=== PATIENT | female | born 1965 | race Caucasian/White ===

== ENCOUNTER 2019-02-13 08:58 | Outpatient (CLI) | payer BC ==
--- NOTE | 2019-02-13 11:30 | PET ---
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 Special concern for skull. COMPARISON: None available TECHNIQUE: IV injection of F-18 fluorodeoxyglucose (FDG) dose: 11.4 mCi. PET scan and attenuation correction CT performed from skull base to proximal thighs. PET scan and attenuation correction CT thinner slices performed through head and neck. FINDINGS: SUV (standard uptake values) numbers given are maximum SUVs. QCLR used. 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 No hypermetabolic lesions anywhere in the in the head and neck, including cervical spine, skull base, and mandible. In the superior, far anterior mediastinum broadly abutting the sternum and centered to the left of mi dline, there is a soft tissue density mass that measures approximately 3 x 1.5 x 2.5 cm, with SUV 3.2. The adjacent sternal manubrium which it abuts, is almost completely involved with a diffusely os teolytic lesion, for which the SUV is only 2.6. Nevertheless, based on the circumstances, this osteolytic lesion is still consistent with plasmacytoma/myeloma. There are no other hypermetabolic soft tissue lesions in the rest of the chest, abdomen, or pelvis. There are diffusely mildly increased FDG uptake involving much of the skeleton, without evidence of d iscrete lesion on the attenuation correction CT. For example, bilateral iliac bones have SUVs in the 2.1-2.6 range. S1 sacral body has SUV of 2.6. All of the lumbar vertebral bodies and most of the thoracic vertebral bodies have SUVs ranging from approximately 2.4 to slightly greater than 3.0. For example, the T8 vertebral body has SUV of 3.4. Although some of the SUVs fall below the 2.5 threshold in the pelvis and lumbar spine, the patient re portedly had a random bone marrow biopsy at [facility] of the left iliac bone which showed positive results of multiple myeloma. Therefore, it is concluded that all of these skele larissa regions of mildly increased FDG uptake throughout the thoracic spine, lumbar spine, and pelvis, represent involvement by multiple myeloma. IMPRESSION: 1) evidence for multiple myeloma. 2) the originally diagnosed lesion in the sternum is definitely a large osteolytic lesion visible on the attenuation correction CT. It has slightly increased uptake with SUV of 2.6. 3) a 3 cm retrosternal soft tissue density mass with SUV 3.2 is evidence for myeloma/plasmacytoma. 4) evidence for multiple myeloma diffuse involvement of the thoracic spine, lumbar spine, and pelvis, with mostly low grade FDG uptake.
== END 2019-02-13 08:59 | disposition home or self-care (01) ==
LOC: PET 08:58
PROVIDERS: ATTEND Internal Medicine Hematology & Oncology
DX: C90.00 Multiple myeloma not having achieved remission (principal); R22.2 Localized swelling, mass and lump, trunk; M89.9 Disorder of bone, unspecified
CPT/HCPCS: 78815; A9552

== ENCOUNTER 2019-03-06 13:48 | Outpatient (CLI) | payer BC ==
--- NOTE | 2019-03-06 14:45 | RAD ---
ABDOMEN 2 VIEWS: HISTORY: Severe constipation. FINDINGS: No free intraperitoneal air. There is solid fecal material in the colon including minimally dilated rectum, evidence for constipation. No evidence for overt large or small bowel obstruction. No overt calculus. IMPRESSION: Considerable fecal material throughout the colon, evidence for constipation. POS: C
== END 2019-03-06 13:49 | disposition home or self-care (01) ==
LOC: BICRAD 13:48
PROVIDERS: ATTEND Internal Medicine
DX: K59.00 Constipation, unspecified (principal)
CPT/HCPCS: 74019

== ENCOUNTER 2019-05-10 10:17 | Observation (INO) | payer OTHER ==
[2019-05-10 11:01] LABS: #Eosinphils 0.2 thou/uL (0.0-0.7); #Lymphocytes 0.5 thou/uL (1.20-3.40); #Monocytes 0.2 thou/uL (0.11-0.59); #Neutrophils 4.3 thou/uL (1.40-6.50); %Basophils 0.4 % (0.0-1.0); %Lymphocytes 8.7 % (21.0-51.0); %Monocytes 2.8 % (0.0-10.0); %Neutrophils 84.1 % (42.0-75.0); Hemoglobin 12.9 g/dL (12.0-16.0); Mean Corpuscular HGB CONC 33.1 g/dL (32.0-36.0); Mean Corpuscular Hemoglobin 32.6 pg (27.0-31.0); Mean Corpuscular Volume 98.4 fL (78.0-98.0); Platelet Count 205 thou/uL (130-400); RBC Distribution Width 13.2 % (11.5-14.5); Red Blood Cell (RBC) Count 3.95 mill/uL (4.20-5.40); White Blood Cell (WBC) Count 5.2 thou/uL (4.8-10.8)
--- NOTE | 2019-05-10 11:05 | CT ---
EXAM: CT Stone Protocol PROVIDED CLINICAL HISTORY: Left flank pain COMPARISON: None FINDINGS: Visualized lung bases are free of significant opacity. The solid abdominal organs are suboptimally evaluated in the absence an unremarkable unenhanced CT ap pearance. Small caudate lobe liver cyst. Extrarenal pelvis on the right. No evidence for urinary tract calculi. No bowel dilatation, inflammatory fat stranding, free fluid or free air apparent. There is moderate c olonic fecal retention. There is no evidence for appendicitis. Foci of gas are seen within the cutaneous adipose layer of the anterior abdominal wall presumably ref lecting sites of medication administration. The osseous structures demonstrate no concerning lytic or blastic lesions. IMPRESSION: No evidence for urinary tract calculi or hydronephrosis.
[2019-05-10] MEDS ORDERED: Morphine 2 MG/ML SYRINGE ONE ×2 (11:08→11:44)
--- NOTE | 2019-05-10 11:32 | ULT ---
EXAM: Bilateral lower extremity venous Doppler PROVIDED CLINICAL HISTORY: Edema FINDINGS: Grayscale and color Doppler sonography with spectral analysis was performed of the common femoral, fe moral, popliteal, posterior tibial, greater saphenous and profunda femoral veins bilaterally. The evaluated venous structures demonstrate a normal sonographic appearance. IMPRESSION: No sonographic evidence for lower extremity deep venous thrombosis.
[2019-05-10 11:33] LABS: Calcium 8.8 mg/dL (7.8-10.44); Chloride 104 mmol/L (98-107); Potassium 3.4 mmol/L (3.5-5.1); Sodium 137 mmol/L (136-145)
[2019-05-10 11:43] LABS: Albumin 4.3 g/dL (3.5-5.0)
[2019-05-10 11:45] LABS: Globulin 1.9 g/dL (2.4-3.5); Glucose 108 mg/dL (70-105); Protein, Total 6.2 g/dL (6.0-8.3)
[2019-05-10 11:47] LABS: Anion Gap 9 mmol/L (10-20); Bilirubin, Total 0.2 mg/dL (0.2-1.2); Carbon Dioxide 27 mmol/L (22-29)
[2019-05-10 11:48] LABS: Alkaline Phosphatase 71 U/L (40-150); Calc. Creatinine Clearance 0 mL/min (70-130); Estimated GFR-MDRD 71
[2019-05-10 11:49] LABS: BUN (Urea Nitrogen) 8 mg/dL (9.8-20.1)
[2019-05-10 11:50] LABS: AST (SGOT) 14 U/L (5-34)
[2019-05-10 11:51] LABS: ALT (SGPT) 13 U/L (8-55)
[2019-05-10] MEDS ORDERED: Potassium Chloride 20 MEQ TAB ONE (12:38)
[2019-05-10] MEDS ORDERED: Ketorolac Tromethamine 30 MG/ML VIAL ONE (12:38)
[2019-05-10 13:35] LABS: Magnesium 2.1 mg/dL (1.6-2.6)
[2019-05-10 13:55] LABS: Bilirubin Negative (Negative); Blood, Urine Negative (Negative); Clarity Clear (Clear); Glucose, Urine (Dipstick) Normal (Negative); Leukocyte Negative Leu/uL (Negative); Nitrite Negative (Negative); Protein, Urine (Dipstick) Negative (Neg-Trace); Urobilinogen Normal mg/dL (Less than 2)
[2019-05-10] MEDS ORDERED: Morphine 2 MG/ML SYRINGE SLOW IVP PRN (15:31)
[2019-05-10 15:43] LABS: Lactic Acid 0.6 mmol/L (0.5-2.2)
[2019-05-10] MEDS ORDERED: Ketorolac Tromethamine 30 MG/ML VIAL IVP PRN (16:38)
[2019-05-10] MEDS ORDERED: Ondansetron ODT 4 MG TAB PO PRN (16:45)
[2019-05-10] MEDS ORDERED: Acetaminophen 325 MG TAB PO PRN (16:45)
[2019-05-10] MEDS ORDERED: Ondansetron PF 4 MG/2 ML Vial IVP PRN (16:45)
[2019-05-10] MEDS: Sodium Chloride 0.9% 1,000 ML IV SCH (16:47)
[2019-05-10 17:07] VITALS: BMI 25.7
--- NOTE | 2019-05-10 19:02 | HP ---
PRIMARY CARE PHYSICIAN: Jorge Cooper MD CHIEF COMPLAINT: Left flank pain. HISTORY OF PRESENT ILLNESS: Ms. Candelario is a 53-year-old female with a past medical history of multiple myeloma, currently undergoing chemotherapy. She had recently finished her fourth round of chemo and is scheduled to undergo stem cell transplant next month in [facility]. She had reported to the ED earlier today with worsening left flank pain and left lower back pain, she was recently treated for a UTI with Bactrim about 3 days ago, urine culture returned normal. She had denied any fever or chills; any headache, blurred vision, or dizziness; any chest pain, palpitations, shortness of breath, abdominal pain, nausea, or vomiting. She had denied any radiation of her pain, and states that it is there all day, no matter what she does, she is not able to get comfortable. She underwent further testing in the ED including a bilateral lower extremity Doppler, which was negative for DVT at this time, and she underwent a CT stone protocol, which was normal. She states that she is under the care of Dr. 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 Her blood pressure and other vital signs remained stable, and her pain was improved after a dose of morphine and Toradol. REVIEW OF SYSTEMS: All other systems reviewed and found to be negative unless mentioned in the HPI. PAST MEDICAL HISTORY: Multiple myeloma. PAST SURGICAL HISTORY: C-spine fusion of C5 and C6, appendectomy, hysterectomy. PAST PSYCHIATRIC HISTORY: None. SOCIAL HISTORY: The patient reports drinking socially roughly once a month, and denied any illicit drug use. She is a former tobacco user and quit more than 10 years ago. KNOWN ALLERGIES: No known drug allergies. CURRENT HOME MEDICATIONS: 1. Biotin 1000 mcg oral daily. 2. Bortezomib 1.3 mg/m2 subcu. 3. Vitamin D3 1000 units p.o. daily. 4. Denosumab 120 mg subcu q.30 days. 5. Dexamethasone 20 mg p.o. q.7 days. 6. TONEY 100 mg p.o. daily. 7. Multivitamin 1 capsule p.o. daily. 8. [place]-3 fatty acid and fish oil one capsule oral daily. 9. Omeprazole 20 mg oral daily. 10. Zofran 8 mg p.o. b.i.d. 11. Bactrim 400 mg p.o. b.i.d. 12. Aspirin 81 mg daily. 13. Hydrocodone/acetaminophen 5/325 mg oral as needed for pain. 14. Lenalidomide 25 mg p.o. daily. 15. Valacyclovir 500 mg p.o. at bedtime. 16. Venlafaxine 150 mg p.o. daily. PHYSICAL EXAMINATION: VITAL SIGNS: BP 140/76, pulse 99, respirations 18, temp 98.1, O2 saturation 97% on room air. GENERAL: The patient is awake, alert, and oriented x3. She is currently lying comfortably in bed. She appears to be in mild acute distress due to her flank pain and her is at bedside. HEENT: Atraumatic and normocephalic. Pupils are round and reactive to light. Extraocular muscles intact. Moist mucous membranes noted. NECK: Soft, supple. Trachea midline. CARDIOVASCULAR: Positive S1 and S2. Regular rate and rhythm. No murmur auscultated. RESPIRATORY: Clear to auscultation bilaterally. No wheezes, rales, or rhonchi. ABDOMEN: Soft, nontender. Bowel sounds present. She appears to have some mild bruises, however, nontender. EXTREMITIES: Moves all extremities equal. Strength 5+ bilaterally. Pedal and radial pulses 2+ bilaterally. No edema noted. BACK: Flank tenderness noted in the lumbar region. NEUROLOGIC: Cranial nerves 2 through 12 grossly intact. No focal deficits noted. Speech intact and normal. Gait not assessed. SKIN: Warm, dry, and intact. PSYCHIATRIC: Good mood and affect. LABORATORY DATA: WBC 5.2, RBC 3.95, hemoglobin 12.9, hematocrit 38.9, platelets 205. Sodium 137, potassium 3.4, anion gap 9, BUN 8, creatinine 0.84, estimated GFR 71, glucose 108. Lactic acid 0.6, calcium 8.8, magnesium 2.1. Creatine kinase 42. Vitamin D 30.7. Urinalysis unremarkable. DIAGNOSTIC IMAGING: Bilateral lower extremity Doppler was negative for DVT. CT stone protocol was unremarkable. ASSESSMENT AND PLAN: 1. Flank pain. This appears to be likely a musculoskeletal in nature. Therefore, we will give her symptomatic treatment with IV Toradol, IV morphine, and topical lidocaine. We will also keep her on her home regimen for pain control. However, we will check an MRI for further evaluation. 2. History of multiple myeloma. We will consult with Dr. Ashley for further recommendations. 3. Deep venous thrombosis and gastrointestinal prophylaxis. 4. Code status, full code. DISPOSITION: Pending further workup and clinical findings. Job ID: [id number]
[2019-05-10] MEDS: Famotidine 20 MG TAB PO SCH (20:50)
[2019-05-10] MEDS ORDERED: Lenalidomide [Revlimid] 25 MG PO SCH (21:00)
[2019-05-10] MEDS ORDERED: Aspirin Chewable 81 MG TAB PO SCH (21:00)
[2019-05-10] MEDS ORDERED: valACYclovir 500 MG TAB PO SCH (21:00)
[2019-05-10] MEDS: BACTRIM PO SCH (21:05)
[2019-05-10] MEDS: HYDROcodone/Acetaminophen 5/325 mg Tablet PO PRN (21:56)
[2019-05-11] MEDS: Sodium Chloride 0.9% 1,000 ML IV SCH (02:02)
[2019-05-11] MEDS: HYDROcodone/Acetaminophen 5/325 mg Tablet PO PRN ×3 (03:04→13:00)
[2019-05-11 03:11] LABS: #Lymphocytes 0.4 thou/uL (1.20-3.40); #Monocytes 0.5 thou/uL (0.11-0.59); #Neutrophils 3.9 thou/uL (1.40-6.50); %Basophils 0.2 % (0.0-1.0); %Eosinophils 0.6 % (0.0-10.0); %Neutrophils 81.1 % (42.0-75.0); Hemoglobin 11.2 g/dL (12.0-16.0); Mean Corpuscular HGB CONC 33.5 g/dL (32.0-36.0); Mean Corpuscular Hemoglobin 33.3 pg (27.0-31.0); Mean Corpuscular Volume 99.3 fL (78.0-98.0); Mean Platelet Volume 8.2 fL (7.4-10.4); Platelet Count 158 thou/uL (130-400); RBC Distribution Width 13.1 % (11.5-14.5); Red Blood Cell (RBC) Count 3.37 mill/uL (4.20-5.40); White Blood Cell (WBC) Count 4.8 thou/uL (4.8-10.8)
[2019-05-11 03:35] LABS: Anion Gap 12 mmol/L (10-20); BUN (Urea Nitrogen) 8 mg/dL (9.8-20.1); Calc. Creatinine Clearance 100 mL/min (70-130); Calcium 7.6 mg/dL (7.8-10.44); Carbon Dioxide 22 mmol/L (22-29); Chloride 109 mmol/L (98-107); Estimated GFR-MDRD 90; Glucose 115 mg/dL (70-105); Potassium 4.2 mmol/L (3.5-5.1); Sodium 139 mmol/L (136-145)
[2019-05-11] MEDS: BACTRIM PO SCH (08:33)
[2019-05-11] MEDS: Famotidine 20 MG TAB PO SCH (08:33)
[2019-05-11] MEDS ORDERED: Lenalidomide [Revlimid] 25 MG PO SCH (09:00)
[2019-05-11] MEDS ORDERED: Lidocaine 5% Patch TD SCH (09:00)
[2019-05-11] MEDS ORDERED: Enoxaparin Sodium 40 MG/0.4 ML SYRINGE SC SCH (09:00)
[2019-05-11] MEDS ORDERED: Venlafaxine HCl XR 150 MG CAP PO SCH (09:00)
[2019-05-11] MEDS ORDERED: Milk Of Magnesia 30 ML UDCUP PO PRN (10:10)
--- NOTE | 2019-05-11 11:25 | MRI ---
EXAM: MRI Lumbar Spine WO Con PROVIDED CLINICAL HISTORY: Back pain COMPARISON: None FINDINGS: 5 lumbar vertebral bodies are assumed. Lumbar alignment appears normal. Vertebral body heights appear preserved. No focal concerning regional marrow or muscular signal abnormality is evident. The conus medullaris is normal in signal and terminates at an appropriate level. The visualized extraspin al soft tissues appear unremarkable. The L1-2 and L2-3 levels are unremarkable. At L3-4, there is disc desiccation and mild disc space height loss within annular tear involving the dorsal disc margin. There is mild bilateral facet arthritis. There is no significant central canal or foraminal narrowing apparent. At L4-5, there is disc desiccation and a broad-based disc bulge and bilateral facet arthritis. There is no significant central canal or foraminal narrowing apparent. At L5-S1, there is a annular tear involving the dorsal disc margin. There is bilateral facet arthriti s. There is no significant central canal or foraminal narrowing apparent. IMPRESSION: Lumbar disc and facet degenerative changes as described.
[2019-05-11 12:43] VITALS: BP 123/65; TEMP 98.2
--- NOTE | 2019-05-11 13:16 | CON ---
DATE OF CONSULTATION: REASON FOR CONSULT: Multiple myeloma. HISTORY OF PRESENT ILLNESS: Ms. Candelario is a pleasant 53-year-old female, who is newly diagnosed with multiple myeloma. She had a manubrium mass consistent with a plasmacytoma. She underwent 4 cycles of Revlimid, Velcade, dexamethasone, and Xgeva. She also had radiation to her plasmacytoma. She is scheduled for a stem cell transplant in May. She has been having a rash and erythema from her Velcade injection and she has struggled with constipation throughout this entire process. She has been recently diagnosed with urinary tract infection. She presented to the emergency room yesterday with left upper quadrant abdominal pain and flank pain. She underwent a venous Doppler of her lower extremities, which was negative for DVT. She also underwent an abdominal CT. There was no bowel dilation, inflammatory fat stranding, or free air apparent. There was some stool retention. She has been given narcotic pain medication with some improvement in her pain. Her antibiotics for UTI have been continued. PAST MEDICAL HISTORY: 1. IgM kappa myeloma. 2. Depression. PAST SURGICAL HISTORY: 1. Appendectomy. 2. Hysterectomy. 3. C-spine fusion. ALLERGIES: TO BEXTRA. HOME MEDICATIONS: 1. Aspirin. 2. Biotin. 3. Velcade. 4. Vitamin D. 5. Xgeva. 6. Dexamethasone. 7. [place]. 8. Revlimid. 9. MVI. 10. Fish oil. 11. Prilosec. 12. Zofran. 13. Bactrim. 14. Valtrex. 15. Effexor. FAMILY HISTORY: Lung and kidney cancer. SOCIAL HISTORY: , has 3 children. She is a former smoker. No alcohol or illicit drug use. REVIEW OF SYSTEMS: Positive for constipation, left upper quadrant abdominal pain and left flank pain. Otherwise, negative. PHYSICAL EXAMINATION: VITAL SIGNS: Temperature 97.5, pulse is 82, respiratory rate 12, blood pressure is 120/67, and she is 98% on room air. GENERAL: Well-developed, well-nourished female, in no acute distress. HEENT: Normocephalic, atraumatic. Pupils are equal and reactive to light. NECK: Supple. CARDIOVASCULAR: Regular rate and rhythm. LUNGS: Clear. ABDOMEN: Soft. Bowel sounds are positive. She has mild tenderness to palpation in the left upper quadrant. EXTREMITIES: No clubbing or cyanosis. SKIN: She has erythema from her Velcade injections on her abdomen, both the right and left lower quadrant. NEUROLOGICAL: Nonfocal. PERTINENT LABS AND X-RAYS: Current WBCs are 4.8, hemoglobin 11.2, hematocrit 33.5, platelet count is 158,000, 81% neutrophils, 8% lymphocytes. Sodium 139, potassium 4.2, chloride 109, CO2 is 22, BUN is 8, creatinine is 0.69, and calcium 7.6. Lactic acid 0.6. Magnesium 2.1, bilirubin 0.2, AST is 14, ALT is 13, alkaline phosphatase is 71. Creatine kinase is 42. Serum total protein 6.2, albumin 4.3, and globulin 1.9. Urine is negative. ASSESSMENT: 1. Multiple myeloma, status post chemotherapy. 2. Urinary tract infection. 3. Left upper quadrant abdominal pain. DISCUSSION: The patient has been continued on her antibiotics for her UTI. She has been started on IV fluids and given Bristol pain medication. She states that she does struggle with constipation and there is retained fecal matter in her GI tract. We will give her Colace and Milk of Magnesia to see if she can have a bowel movement with improvement in her pain. No inpatient recommendations for her multiple myeloma. I will check her stool for occult blood per her request, as it is needed for a stem cell transplant that is taking place in about 2 weeks. Home, when her pain is better. Thank you for the consult. Job ID: [id number]
--- NOTE | 2019-05-11 14:45 | PRG ---
DATE OF SERVICE: 05/11/2019 SUBJECTIVE: The patient is seen and examined at bedside. She still complains about the back pain which is located in the mid part of the back just spine to the left. It is not worse with palpation. The pain which she has in the abdomen area, it is more related to the change of position. No nausea. No vomiting. She has chronically constipated from her medications for multiple myeloma. OBJECTIVE: VITAL SIGNS: Blood pressure is 123/65, pulse is 84, temperature is 98.2, respirations 16, O2 saturation 97% on room air. HEENT: Head is atraumatic and normocephalic. Eyes are PERRLA. Sclerae are nonicteric. Oral mucosa is moist. NECK: Supple. LUNGS: Clear. HEART: S1 and S2 normal. The pain in the lower parts of the thoracic spine to the left is the area which she complained about discomfort, but it is not reproducible with applied pressure. ABDOMEN: Soft, nontender. There is no organomegaly. Bowel sounds are present. EXTREMITIES: No clubbing, cyanosis, or edema. NEUROLOGICAL: She is alert and oriented x4. There is no any motor or sensory deficits. LABORATORY DATA: Labs showed a white count of 4.8, hemoglobin 11.2, hematocrit 33.5, and platelet count is 158,000. Sodium of 139, potassium 4.2, chloride 109, CO2 of 22, BUN 8, creatinine 0.69, calcium 7.6, vitamin D came back at 30.7. IMPRESSION: 1. Back pain which is not clear etiology, probably just musculoskeletal. Negative MRI without contrast and negative CT of the abdomen, stone protocol. We will use p.r.n. anti-inflammatory opioids and topical lidocaine. 2. Multiple myeloma. She is supposed to have stem cell transplant in 2 weeks. 3. Constipation. 4. Urinary tract infection. 5. We will stop IV fluids. We will continue p.r.n. anti-inflammatory or anti-pain medicine. We will get PT and she should be able to go home in the next 24 hours. Job ID: [id number]
--- NOTE | 2019-05-11 18:39 | DIS ---
DATE OF ADMISSION: 05/10/2019 DATE OF DISCHARGE: 05/11/2019 DIAGNOSES: At the time of discharge; 1. Back pain, most likely musculoskeletal etiology. 2. Multiple myeloma. 3. Microcytic anemia. 4. Hypocalcemia. 5. Hypokalemia corrected. CONSULTANTS: Dr. Maxwell, Oncology/Hematology Team. HOSPITAL COURSE: The patient is a 53-year-old female with past medical history of multiple myeloma, currently undergoing chemotherapy, who finished her four round of chemo and is scheduled for stem cell transplant next month at [facility], who reported to the ED earlier yesterday with worsening left flank pain and left lower back pain. Recently, she was diagnosed with UTI and placed on Bactrim. She denied any fever, chills, headache, blurred vision, dizziness, chest pain, palpitations, shortness of breath, abdominal pain, nausea, or vomiting. She underwent bilateral lower extremity Doppler in the emergency room, which was negative for DVT. Also, she underwent CT stone protocol, which was normal. At the time of emergency room visit, her white count was 5.2, hemoglobin 12.9, hematocrit 38.9, and platelet count 205,000. Sodium 137, potassium 3.4, BUN was 8, creatinine 0.82, lactic acid 0.6, glucose 108, magnesium 2.1, creatinine 42, and vitamin D was 30.7. Urinalysis was unremarkable. She got admitted to the hospital with IV fluids, IV Toradol, IV morphine, and topical lidocaine. MRI of the lumbar spine was done and it showed degenerative changes of lumbar disk and facets. She was seen by Oncology team, Audrey Juárez, who recommended just pain management with [place] and constipation management with Colace and milk of magnesia. The patient wants to go home. She is discharged home in good condition. She still has back pain on and off. Temperature is 98.2, respirations 16, pulse 84, blood pressure 123/65, and pulse oximetry is 97% on room air. She is seen and examined before she is discharged. DISPOSITION: She is discharged home. ACTIVITIES: As tolerated. DIET: Regular. MEDICATIONS: At the time of discharge; 1. Aspirin 81 mg once a day. 2. [place] 5/325 mg [id number]. 3. Docusate 100 mg twice a day. 4. Valacyclovir 500 mg at bedtime. 5. Effexor 150 mg daily. 6. Biotin 1000 mcg daily. 7. Velcade 3.5 mg while subcu 1.3 mg/m2 on the 3rd, 5th, 9th, 11th, and 21-day cycle. 8. Vitamin D3 of 1000 units once a day. 9. Xgeva 120 mg subcutaneously every 30 days. 10. Dexamethasone 20 mg q.7 days. 11. Docosahexaenoic acid or DHA 100 mg daily. 12. Ibuprofen 400 mg q.4 hours p.r.n. as needed. 13. Revlimid 25 mg once a day. 14. Multivitamin one a day. 15. [place]-3 fatty acids one a day. 16. Omeprazole 20 mg daily. 17. Ondansetron, which is Zofran 8 mg b.i.d. 18. Bactrim 400/80 mg twice a day for additional 2 days. 19. Tramadol 50 mg q.4 hours p.r.n. as needed. FOLLOWUP: She is going to follow up with her primary care physician in 1 week and with [facility], Dr. Ashley and MD Albarran as scheduled before. Job ID: [id number]
[2019-05-11] MEDS ORDERED: Lidocaine Patch Removal 1 EACH TOP SCH (21:00)
[2019-05-11] MEDS ORDERED: Docusate 100 MG CAP PO SCH (21:00)
== END 2019-05-11 16:20 | disposition home or self-care (01) ==
LOC: ERS 10:17 → ONC 12:35
PROVIDERS: ADMIT Internal Medicine; ATTEND Internal Medicine
DX: M54.5 Low back pain (principal); R10.12 Left upper quadrant pain; C90.30 Solitary plasmacytoma not having achieved remission; D50.9 Iron deficiency anemia, unspecified; E83.51 Hypocalcemia; E87.6 Hypokalemia; N39.0 Urinary tract infection, site not specified; F32.9 Major depressive disorder, single episode, unspecified; K59.00 Constipation, unspecified; M51.36 Other intervertebral disc degeneration, lumbar region; M46.86 Other specified inflammatory spondylopathies, lumbar region; Z87.891 Personal history of nicotine dependence; Z79.82 Long term (current) use of aspirin; Z79.899 Other long term (current) drug therapy; Z88.6 Allergy status to analgesic agent; Z98.1 Arthrodesis status
CPT/HCPCS: 36415; 72148; 74176; 80048; 80053; 81003; 82306; 82550; 83605; 83735; 85025; 87040; 87086; 93970; 96361; 96374; 96375; 96376; G0378; J1650; J1885; J2270; J2405

== ENCOUNTER 2019-08-15 07:26 | Outpatient (CLI) | payer OTHER ==
--- NOTE | 2019-08-15 08:18 | ULT ---
ULTRASOUND GALLBLADDER RIGHT UPPER QUADRANT: CLINICAL HISTORY: Nausea. Vomiting. Abdominal pain.. COMPARISON: None. Correlation: Stone CT 05/10/2019. FINDINGS: Pancreas: The head and proximal pancreatic body have a normal echotexture. The remainder the pancreas is obscured by bowel gas. Liver: Normal parenchymal echotexture. No hepatic solid masses or intrahepatic biliary dilatation. Th e contour of the hepatic margin is maintained. Right hepatic lobe measures 14.1 cm. Anechoic focus of the caudate lobe measures 1.2 x 1.3 x 1.2 cm suggesting a caudate lobe cyst. Gallbladder: Nonmobile, nonshadowing echogenic foci in the lumen of the gallbladder measuring 0.4 cm. Small gallbladder wall polyp is suspected. No evidence of gallbladder wall thickening or pericholecystic fluid. Cody's sign: Not commented upon. Portal Vein: Patent. Appropriate directional flow. Bile ducts: Common bile duct diameter 0.37 cm. Right kidney: No hydronephrosis 0.5 x 0.3 x 0.5 cm echogenic focus in the right renal cortex, which m ay represent a cortical calcification. Note, correlation made with recent CT does not demonstrate CT correlate.. Right kidney measures 3.8 x 10.3 x 5.1 cm in length. IMPRESSION: 1. Gallbladder wall polyp. 2. Possible small nephrolithiasis involving the right kidney. 3. Cyst in the caudate lobe of the liver. Transcribed Date/Time: 08/15/2019 8:28 AM
== END 2019-08-15 07:27 | disposition home or self-care (01) ==
LOC: ULT 07:26
PROVIDERS: ATTEND Internal Medicine Hematology & Oncology
DX: R10.9 Unspecified abdominal pain (principal); R11.2 Nausea with vomiting, unspecified; C90.20 Extramedullary plasmacytoma not having achieved remission; C90.00 Multiple myeloma not having achieved remission; C79.51 Secondary malignant neoplasm of bone; D47.2 Monoclonal gammopathy; K82.4 Cholesterolosis of gallbladder; K76.89 Other specified diseases of liver
CPT/HCPCS: 76705

== ENCOUNTER 2019-08-19 18:14 | Emergency (ER) | payer OTHER ==
[~2019-08-19 18:14] MED LIST: Iopamidol-370 76% 500 ML 1 ML ONE
--- NOTE | 2019-08-19 19:11 | RAD ---
EXAM: Portable chest PROVIDED CLINICAL HISTORY: Fever COMPARISON: None FINDINGS: Cardiac and mediastinal silhouette is within normal limits. No focal consolidation, pleural fluid or pneumothorax evident. IMPRESSION: No evidence for an acute cardiopulmonary process.
[2019-08-19 19:12] LABS: #Eosinphils 0.2 thou/uL (0.0-0.7); #Lymphocytes 0.6 thou/uL (1.20-3.40); #Monocytes 0.4 thou/uL (0.11-0.59); #Neutrophils 2.7 thou/uL (1.40-6.50); %Basophils 0.5 % (0.0-1.0); %Eosinophils 4.6 % (0.0-10.0); %Lymphocytes 15.3 % (21.0-51.0); %Monocytes 10.3 % (0.0-10.0); %Neutrophils 69.3 % (42.0-75.0); Hemoglobin 14.1 g/dL (12.0-16.0); Mean Corpuscular HGB CONC 35.5 g/dL (32.0-36.0); Mean Corpuscular Hemoglobin 31.7 pg (27.0-31.0); Mean Corpuscular Volume 89.3 fL (78.0-98.0); Mean Platelet Volume 8.2 fL (7.4-10.4); Platelet Count 110 thou/uL (130-400); RBC Distribution Width 16.3 % (11.5-14.5); Red Blood Cell (RBC) Count 4.45 mill/uL (4.20-5.40); White Blood Cell (WBC) Count 3.9 thou/uL (4.8-10.8)
[2019-08-19 19:24] LABS: ALT (SGPT) 104 U/L (8-55); AST (SGOT) 115 U/L (5-34); Alkaline Phosphatase 80 U/L (40-110); Anion Gap 10 mmol/L (10-20); BUN (Urea Nitrogen) 4 mg/dL (9.8-20.1); Bilirubin, Total 0.5 mg/dL (0.2-1.2); Calc. Creatinine Clearance 0 mL/min (70-130); Calcium 7.7 mg/dL (7.8-10.44); Carbon Dioxide 26 mmol/L (22-29); Chloride 104 mmol/L (98-107); Estimated GFR-MDRD Greater than 90; Globulin 2.1 g/dL (2.4-3.5); Glucose 98 mg/dL (70-105); Potassium 3.3 mmol/L (3.5-5.1); Protein, Total 6.1 g/dL (6.0-8.3); Sodium 137 mmol/L (136-145)
[2019-08-19 19:31] LABS: Large Platelets SLIGHT; MDiff Complete? YES; Platelet Morphology Comment Appears Decreased; RBC Morphology Normal
--- NOTE | 2019-08-19 20:07 | CT ---
EXAM: CT pulmonary angiogram with IV contrast and 3-D MIP reconstructions PROVIDED CLINICAL HISTORY: Cough COMPARISON: None FINDINGS: There is no evidence for central or segmental pulmonary embolus. The lungs are free of significant opacity. No pleural fluid or pneumothorax apparent. No evidence for thoracic lymph node enlargement. The airway appears patent and of normal caliber. The visualized portions of the upper abdomen demonstrate no acute findings. Lytic lesion within the sternum compatible with patient's provided clinical history of multiple myelo ma. IMPRESSION: No evidence for central or segmental pulmonary embolus.
== END 2019-08-19 21:02 | disposition home or self-care (01) ==
LOC: ERS 18:14
DX: J06.9 Acute upper respiratory infection, unspecified (principal); Z87.891 Personal history of nicotine dependence; Z79.899 Other long term (current) drug therapy
CPT/HCPCS: 36415; 71045; 71275; 80053; 83605; 85025; 85379; 87040; 87804; 96360; 96361; Q9967

== ENCOUNTER 2019-10-24 11:39 | Day surgery (SDC) | payer OTHER ==
[2019-10-23 11:06] VITALS: BMI 24.4
[2019-10-24] MEDS ORDERED: Propofol 500 MG/50 ML VIAL ONE ×2 (13:44→14:24)
[2019-10-24] MEDS ORDERED: Bupivacaine 0.25% HCL 30 ML VIAL ONE (14:11)
[2019-10-24] MEDS ORDERED: Lidocaine 1% w/Epinephrine 1:100K 20 ML VIAL ONE (14:11)
[2019-10-24] MEDS ORDERED: Midazolam HCl 2 mg/2 ml Vial ONE (14:24)
[2019-10-24] MEDS ORDERED: Fentanyl 100 MCG/2 ML VIAL ONE (14:24)
--- NOTE | 2019-10-24 16:00 | RAD ---
CHEST 1 VIEW: HISTORY: MediPort placement. FINDINGS: Heart size within normal limits. A right-sided MediPort catheter has been placed. Catheter tip over lies the superior vena cava. No pneumothorax. IMPRESSION: Post MediPort catheter placement. No pneumothorax. POS: [facility]
--- NOTE | 2019-10-24 21:58 | OP ---
DATE OF PROCEDURE: 10/24/2019 PREOPERATIVE DIAGNOSIS: Multiple myeloma. POSTOPERATIVE DIAGNOSIS: Multiple myeloma. PROCEDURE PERFORMED: Tunneled central line subcutaneous port (MediPort). ANESTHESIA: General. ESTIMATED BLOOD LOSS: Minimal. COMPLICATIONS: None. SPECIMEN: None. FINDINGS: Tip of the catheter was at the atriocaval junction. DESCRIPTION OF PROCEDURE: The patient was taken to the operating room and laid supine on the operating room table. After general anesthetic was obtained, the bilateral neck and chest were shaved, prepped, and draped in a sterile fashion. Local anesthetic was infiltrated over the right internal jugular vein. Internal jugular vein cannula using a 22-gauge finder needle followed by a Seldinger wire was passed into the superior vena cava under fluoro guidance. The dilator was used and a small shilpa was made at the wire entrance site. A separate 3 cm incision was made in the right upper chest. Subcutaneous pocket was made below the lower incision. Tubing for the MediPort tunneled from the inferior to superior incision and suture sheath was placed over the wire into the superior vena cava under fluoro guidance. The dilator and wire were removed. The end of the catheter sewed into the sheath. The sheath was peeled away. The tip of the catheter was at the atriocaval junction. MediPort tubing cut to fit the MediPort at the lower incision and the MediPort sewn to the chest wall in the subcutaneous pocket using Prolene. The MediPort was flushed and marion blood without difficulty, it was flushed with a heparin flush. All wounds were irrigated and closed using 3-0 Vicryl, 4-0 Monocryl, and Dermabond. The patient was sent to Recovery in stable condition. All instrument counts, needle counts, and lap counts were correct. Job ID: [id number]
== END 2019-10-24 16:50 | disposition home or self-care (01) ==
LOC: SDC 11:39
PROVIDERS: ATTEND Surgery
PROC: 02HV33Z Insertion of Infusion Device into Superior Vena Cava, Percutaneous Approach (ICD-10-PCS; principal; 2019-10-24)
DX: C90.00 Multiple myeloma not having achieved remission (principal); F32.9 Major depressive disorder, single episode, unspecified; Z79.899 Other long term (current) drug therapy; Z88.6 Allergy status to analgesic agent; Z88.8 Allergy status to other drugs, medicaments and biological substances
CPT/HCPCS: 71045; C1788; J0690; J1642; J2250; J2704; J3010; S0020

== ENCOUNTER 2020-03-16 16:04 | Outpatient (CLI) | payer OTHER ==
--- NOTE | 2020-03-16 16:28 | MMO ---
Bilateral MAMMO Bilat Screen [facility]. CLINICAL HISTORY: Patient is 54 years old and is seen for screening. The patient has the following family history of breast cancer: maternal aunt, malignant (generic) and paternal aunt, malignant (generic). The patient has a history of other cancer in 2019. VIEWS: The views performed were: bilateral craniocaudal with tomosynthesis and bilateral mediolateral oblique with tomosynthesis. FILMS COMPARED: The present examination has been compared to prior imaging studies performed at [facility] on 07/21/2015, 07/07/2016, 10/15/2017 and 11/11/2018. This study has been interpreted with the assistance of computer-aided detection. MAMMOGRAM FINDINGS: The breasts are almost entirely fat. There are no suspicious masses, suspicious calcifications, or new areas of architectural distortion. IMPRESSION: THERE IS NO MAMMOGRAPHIC EVIDENCE OF MALIGNANCY. A ROUTINE FOLLOW-UP MAMMOGRAM IN 1 YEAR IS RECOMMENDED. THE RESULTS OF THIS EXAM WERE SENT TO THE PATIENT. ACR BI-RADS Category 1 - Negative MAMMOGRAPHY NOTE: 1. A negative mammogram report should not delay a biopsy if a dominant of clinically suspicious mass is present. 2. Approximately 10% to 15% of breast cancers are not detected by mammography. 3. Adenosis and dense breasts may obscure an underlying neoplasm. Reported by: LILIAN BYNUM MD Electonically Signed: [id number]
== END 2020-03-16 16:05 | disposition home or self-care (01) ==
LOC: BICMAMMO 16:04
PROVIDERS: ATTEND Obstetrics & Gynecology
DX: Z12.31 Encounter for screening mammogram for malignant neoplasm of breast (principal); Z80.3 Family history of malignant neoplasm of breast; Z85.89 Personal history of malignant neoplasm of other organs and systems
CPT/HCPCS: 77063; 77067

== ENCOUNTER 2020-03-21 11:40 | Emergency (ER) | payer OTHER ==
[2020-03-21] MEDS ORDERED: Iopamidol-370 76% 500 ML 1 ML ONE (12:06)
[2020-03-21 13:31] LABS: Band 17 % (5-11); Eosinophils 13 % (0-10); Hemoglobin 13.1 g/dL (12.0-16.0); Lymphocytes 15 % (21-51); MDiff Complete? YES; Mean Corpuscular HGB CONC 34.6 g/dL (32.0-36.0); Mean Corpuscular Hemoglobin 36.5 pg (27.0-31.0); Mean Platelet Volume 9.9 fL (7.4-10.4); Monocytes 9 % (0-10); Neutrophil 37 % (42-75); Platelet Count 58 thou/uL (130-400); Platelet Morphology Comment Appears Decreased; RBC Distribution Width 12.2 % (11.5-14.5); Reactive Lymphocytes 9 % (0-10); Red Blood Cell (RBC) Count 3.59 mill/uL (4.20-5.40); White Blood Cell (WBC) Count 5.2 thou/uL (4.8-10.8)
[2020-03-21 13:36] LABS: ALT (SGPT) 77 U/L (8-55); AST (SGOT) 54 U/L (5-34); Alkaline Phosphatase 120 U/L (40-110); Anion Gap 16 mmol/L (10-20); BUN (Urea Nitrogen) 8 mg/dL (9.8-20.1); Bilirubin, Total 0.4 mg/dL (0.2-1.2); Calc. Creatinine Clearance 0 mL/min (70-130); Calcium 8.3 mg/dL (7.8-10.44); Carbon Dioxide 21 mmol/L (22-29); Chloride 105 mmol/L (98-107); Estimated GFR-MDRD Greater than 90; Globulin 2.1 g/dL (2.4-3.5); Glucose 76 mg/dL (70-105); Potassium 4.4 mmol/L (3.5-5.1); Protein, Total 6.1 g/dL (6.0-8.3); Sodium 138 mmol/L (136-145)
[2020-03-21 13:54] LABS: Bilirubin Negative (Negative); Blood, Urine Negative (Negative); Clarity Clear (Clear); Glucose, Urine (Dipstick) Normal (Negative); Ketone, Urine Negative (Negative); Leukocyte Negative Leu/uL (Negative); Nitrite Negative (Negative); Protein, Urine (Dipstick) Negative (Neg-Trace); Specific Gravity, Urine 1.005 (1.002-1.036); Urobilinogen Normal mg/dL (Less than 2); pH, Urine 6.5 (5.0-9.0)
--- NOTE | 2020-03-21 14:56 | CT ---
CTA Angio Chest W WO Con History: Dry cough and shortness of breath Comparison: CT angiogram of the chest July 2019 Findings: CT angiogram chest performed after the intravenous ministration of contrast. 3-D rendering provided. No proximal segmental pulmonary arterial filling defect. No pericardial effusion. No mediastinal betzaida opathy. Limited evaluation of the upper abdomen is unremarkable. Lytic focus of the manubrium is similar. Healing sagittally oriented right manubrial fracture. Patient is of the history of myeloma. Lungs are clear. No pneumothorax. No effusion. No displaced rib fracture. Impression: 1. No pulmonary embolism. 2. No evidence for pneumonia. 3. Healing pathologic fracture of the right manubrium through patient's known focus of myeloma.
[2020-03-22 11:55] LABS: SARS-CoV-2 MS2 Positive; SARS-CoV-2 N Gene Negative; SARS-CoV-2 S Gene Negative; SARS-CoV-2 by NAA Not Detected (NotDetected); SARS-CoV-2 orf1ab Negative
== END 2020-03-21 16:20 | disposition home or self-care (01) ==
LOC: ERS 11:40
DX: R09.1 Pleurisy (principal); R06.02 Shortness of breath; R05 Cough; F32.9 Major depressive disorder, single episode, unspecified; Z87.891 Personal history of nicotine dependence; Z79.899 Other long term (current) drug therapy
CPT/HCPCS: 71275; 80053; 81003; 84484; 85025; 85379; 86140; 87635; 93005; Q9967; U0003

== ENCOUNTER 2020-04-14 10:47 | Emergency (ER) | payer OTHER ==
[2020-04-14] MEDS ORDERED: Ondansetron ODT 4 MG TAB ONE (10:59)
--- NOTE | 2020-04-14 11:35 | CT ---
Exam: Head CT without contrast HISTORY: Headache with sinus drainage. Patient is undergoing chemotherapy for multiple myeloma. COMPARISON: none FINDINGS: Hemorrhage: No intraparenchymal hemorrhage or extra-axial hematoma. Brain parenchyma: Cortical toussaint-white matter differentiation is preserved. No mass effect or midline shift. Basilar cisterns are patent. Ventricular system: Ventricles and sulci are patent and symmetric. Calvarium: Intact. Sinuses and mastoid air cells: Adequate aeration. IMPRESSION: No acute intracranial process.
[2020-04-14 11:49] LABS: Hemoglobin 11.3 g/dL (12.0-16.0); Mean Corpuscular HGB CONC 32.8 g/dL (32.0-36.0); Mean Corpuscular Hemoglobin 34.7 pg (27.0-31.0); Mean Platelet Volume 7.2 fL (7.4-10.4); Platelet Count 254 thou/uL (130-400); RBC Distribution Width 12.3 % (11.5-14.5); Red Blood Cell (RBC) Count 3.25 mill/uL (4.20-5.40); White Blood Cell (WBC) Count 3.8 thou/uL (4.8-10.8)
[2020-04-14 12:12] LABS: ALT (SGPT) 150 U/L (8-55); AST (SGOT) 141 U/L (5-34); Albumin 3.8 g/dL (3.5-5.0); Alkaline Phosphatase 213 U/L (40-110); Anion Gap 10 mmol/L (10-20); BUN (Urea Nitrogen) 10 mg/dL (9.8-20.1); Bilirubin, Total 0.4 mg/dL (0.2-1.2); Calc. Creatinine Clearance 0 mL/min (70-130); Calcium 8.3 mg/dL (7.8-10.44); Carbon Dioxide 28 mmol/L (22-29); Chloride 104 mmol/L (98-107); Estimated GFR-MDRD 86; Glucose 87 mg/dL (70-105); Potassium 4.2 mmol/L (3.5-5.1); Protein, Total 5.8 g/dL (6.0-8.3); Sodium 138 mmol/L (136-145)
[2020-04-14 12:18] LABS: Band 7 % (5-11); Eosinophils 13 % (0-10); Lymphocytes 26 % (21-51); MDiff Complete? YES; Monocytes 13 % (0-10); Neutrophil 35 % (42-75); Platelet Morphology Comment Appears Adequate; Polychromasia SLIGHT = 2-3 cells (100X) (0-2/hpf)
[2020-04-14 13:44] LABS: SARS-CoV-2 NAA Rapid Test Not Detected (NotDetected)
== END 2020-04-14 12:35 | disposition home or self-care (01) ==
LOC: ERS 10:47
DX: R51 Headache (principal); M79.10 Myalgia, unspecified site; Z20.828 Contact with and (suspected) exposure to other viral communicable diseases; F32.9 Major depressive disorder, single episode, unspecified; Z87.891 Personal history of nicotine dependence; Z79.899 Other long term (current) drug therapy; Z85.79 Personal history of other malignant neoplasms of lymphoid, hematopoietic and related tissues
CPT/HCPCS: 36415; 70450; 80053; 85025; 85060; Q0162; U0002

== ENCOUNTER 2020-04-29 15:48 | Outpatient (CLI) | payer OTHER ==
--- NOTE | 2020-04-29 16:23 | RAD ---
LEFT RIB SERIES INDICATION: Left sided rib pain. COMPARISON: None. FINDINGS: Visualized Left Chest: Visualized left lung is clear. No pneumothorax. There is partial visualizatio n of a right chest wall port. The tip of the catheter seen within the region of the SVC. Left Ribs: No displaced left-sided rib fracture is demonstrated. IMPRESSION: No displaced left-sided rib fracture
--- NOTE | 2020-04-29 16:23 | RAD ---
RIGHT RIBS: 04/29/20 Three views. HISTORY: Right rib pain. Right ribs appear intact. No right rib lesion identified. Right lung appears well aerated and clear. IMPRESSION: Unremarkable right ribs. POS: AGW
== END 2020-04-29 15:49 | disposition home or self-care (01) ==
LOC: BICRAD 15:48
PROVIDERS: ATTEND Internal Medicine
DX: R07.81 Pleurodynia (principal)

== ENCOUNTER 2020-06-05 21:25 | Emergency (ER) | payer OTHER ==
--- NOTE | 2020-06-05 22:51 | CT ---
Head CT without contrast 06/05/2020: COMPARISON: 04/14/2020 HISTORY: Headache, hypertension TECHNIQUE: Axial CT imaging at 5 mm intervals from vertex through skull base without contrast FINDINGS: Visualized paranasal sinuses and mastoid air cells are well-aerated. No displaced calvarial fracture. No intracranial hemorrhage, midline shift, mass effect, or ventricular enlargement. IMPRESSION: No acute findings.
[2020-06-05] MEDS ORDERED: Magnesium 2 GM/50 ML BAG (IN WATER) ONE (23:05)
[2020-06-05] MEDS ORDERED: diphenhydrAMINE 50 MG/ML VIAL ONE (23:06)
[2020-06-05] MEDS ORDERED: Metoclopramide HCl 10 MG/2 ML VIAL ONE (23:06)
== END 2020-06-06 00:53 | disposition home or self-care (01) ==
LOC: ERS 21:25
DX: R51.9 Headache, unspecified (principal); I10 Essential (primary) hypertension; F32.9 Major depressive disorder, single episode, unspecified; Z85.79 Personal history of other malignant neoplasms of lymphoid, hematopoietic and related tissues; Z79.899 Other long term (current) drug therapy
CPT/HCPCS: 70450; 96365; 96368; 96375; J1200; J2765; J3475

== ENCOUNTER 2020-07-30 13:35 | Emergency (ER) | payer OTHER ==
[2020-07-30 14:10] LABS: Hemoglobin 12.4 g/dL (12.0-16.0); Mean Corpuscular HGB CONC 32.5 g/dL (32.0-36.0); Mean Corpuscular Hemoglobin 34.4 pg (27.0-31.0); Mean Platelet Volume 7.1 fL (7.4-10.4); Platelet Count 272 thou/uL (130-400); RBC Distribution Width 12.8 % (11.5-14.5); White Blood Cell (WBC) Count 6.7 thou/uL (4.8-10.8)
--- NOTE | 2020-07-30 14:22 | RAD ---
Chest AP view INDICATION: History of shortness of breath and dyspnea COMPARISON: October 24, 2019 FINDINGS: Lungs: The lungs are clear Cardiac silhouette: The cardiomediastinal silhouette appears within normal limits. Pulmonary vasculature: Normal Pleural spaces: No pleural effusion or pneumothorax is demonstrated. Upper abdomen: No abnormality seen. Osseous structures: No acute osseous abnormality. Additional findings: Right chest wall port is stable. Postoperative change of cervical spine is stab le. IMPRESSION: No acute cardiopulmonary abnormality.
[2020-07-30 14:26] LABS: Band 3 % (5-11); Eosinophils 10 % (0-10); Lymphocytes 16 % (21-51); MDiff Complete? YES; Macrocytosis SLIGHT = 6-15 cells (100X) (0-5/hpf); Monocytes 10 % (0-10); Neutrophil 57 % (42-75); Platelet Morphology Comment Appears Adequate; Reactive Lymphocytes 4 % (0-10)
[2020-07-30 14:33] LABS: ALT (SGPT) 64 U/L (8-55); AST (SGOT) 37 U/L (5-34); Albumin 3.9 g/dL (3.5-5.0); Alkaline Phosphatase 109 U/L (40-110); Anion Gap 15 mmol/L (10-20); BUN (Urea Nitrogen) 12 mg/dL (9.8-20.1); Bilirubin, Total 0.3 mg/dL (0.2-1.2); CK (CPK) 28 U/L (29-168); Calc. Creatinine Clearance 0 mL/min (70-130); Calcium 8.3 mg/dL (7.8-10.44); Carbon Dioxide 25 mmol/L (22-29); Chloride 105 mmol/L (98-107); Globulin 2.4 g/dL (2.4-3.5); Glucose 83 mg/dL (70-105); Potassium 4.1 mmol/L (3.5-5.1); Protein, Total 6.3 g/dL (6.0-8.3); Sodium 141 mmol/L (136-145)
--- NOTE | 2020-07-30 14:59 | CT ---
CTA Angio Chest W WO Con 07/30/2020 2:44 PM Indication: Shortness of breath concern for PE Technique: Multiple CTA images were obtained of the thorax with IV contrast. 3-D rendering: MIP pam nstructed images were created and reviewed. Comparison: Prior CT PE dated March 21, 2020 Findings: Pulmonary arteries: No central or segmental pulmonary embolus is evident. Heart and Aorta: Normal appearing. Mediastinum:Normal appearing. No enlarged lymph nodes. Lungs:Calcified granuloma the right lower lobe is stable. No acute infiltrate is evident. No pleural effusion is noted. Pleural space: Clear. Upper Abdomen: No acute abnormality. Osseous Structures: Prominent lytic lesion involving the manubrium is similar appearing. No new foca l osteolytic lesion is identified. Soft tissues:No abnormality. Other findings:None. Impression: No central or segmental pulmonary embolus. Stable manubrial lytic lesion compatible with the patient's history of multiple myeloma.
[2020-07-30] MEDS ORDERED: Lorazepam 2 MG/ML VIAL ONE (15:08)
== END 2020-07-30 16:27 | disposition home or self-care (01) ==
LOC: ERS 13:35
DX: R06.02 Shortness of breath (principal); C90.00 Multiple myeloma not having achieved remission; Z79.899 Other long term (current) drug therapy
CPT/HCPCS: 71045; 71275; 80053; 82550; 83880; 84484; 85025; 93005; 96374; J2060; Q9967

== ENCOUNTER 2020-10-15 22:31 | Inpatient (IN) | payer OTHER ==
--- NOTE | 2020-10-15 22:42 | CT ---
Exam: Head CT without contrast HISTORY: Level 1 stroke. Altered mental status. Aphasia. COMPARISON: 06/05/2020 FINDINGS: Hemorrhage: No intraparenchymal hemorrhage or extra-axial hematoma. Brain parenchyma: Cortical toussaint-white matter differentiation is preserved. No mass effect or midline shift. Basilar cisterns are patent. Ventricular system: Ventricles and sulci are patent and symmetric. Calvarium: Intact. Sinuses and mastoid air cells: Adequate aeration. IMPRESSION: No acute intracranial process. Results of study discussed with Dr. Seals 10/15/2020 at 10:39 PM Code CR
[2020-10-15 23:05] LABS: Prothrombin Time 12.9 sec (12.0-14.7)
--- NOTE | 2020-10-15 23:07 | CT ---
Exam: CTA chest with 3-D rendering: CTA abdomen with 3-D rendering: HISTORY: Stroke patient. Sudden onset left leg pain. COMPARISON: None TECHNIQUE: CT angiogram of the thoracic and abdominal aorta performed in the axial plane. Three-dimen sional reformatted images are submitted for interpretation. FINDINGS: Chest CT: Mediastinum: No mass, lymphadenopathy or hematoma Heart: Normal heart size. No significant pericardial fluid. Coronary arteries: Unremarkable Trachea and central bronchi: Patent Pleural spaces: No pleural effusion. Right lung: Dependent atelectatic change. Calcified granuloma in the right lower lobe. No suspicious masses, consolidation or contusion. Left lung: Dependent atelectatic changes. No suspicious masses, consolidation or contusion Pneumothorax: None Abdomen CT: Gallbladder: Unremarkable Portal vein: Patent Solid organs:Appropriate arterial phase enhancement of the solid organs. There is a small cyst in the caudate lobe of the liver measuring 0.7 cm. Kidneys: Symmetric enhancement. No obstructive uropathy. Mesentery: No mass, lymphadenopathy, free air or free fluid Alimentary canal: Limited evaluation by the lack of oral contrast. No evidence of a bowel obstruction . Normal ileocecal junction. Visualized colon is unremarkable.. Osseous structures: Lucent foci in the manubrium of the sternum may represent malignancy in a patient with known multiple myeloma.. CT ANGIOGRAM: Aortic root, ascending thoracic aorta, aortic arch, descending thoracic aorta and abdominal aorta hav e a normal caliber. No aneurysm or dissection. No periaortic fat stranding. Appropriate enhancement and luminal diameter the celiac artery origin, superior mesenteric artery, solitary right and left re nal artery, inferior mesenteric artery, aortic bifurcation visualized common iliac arteries. 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 IMPRESSION: No CT evidence for aortic aneurysm or aortic dissection. Results study discussed with Dr. Seals 10/15/2020 at 11:02 PM Code CR
[2020-10-15 23:11] LABS: Hemoglobin 10.7 g/dL (12.0-16.0); Mean Corpuscular HGB CONC 33.7 g/dL (32.0-36.0); Mean Corpuscular Hemoglobin 34.6 pg (27.0-31.0); Mean Platelet Volume 6.3 fL (7.4-10.4); Platelet Count 217 thou/uL (130-400); RBC Distribution Width 12.1 % (11.5-14.5); White Blood Cell (WBC) Count 5.9 thou/uL (4.8-10.8)
[2020-10-15 23:19] LABS: ALT (SGPT) 26 U/L (8-55); AST (SGOT) 18 U/L (5-34); Albumin 3.1 g/dL (3.5-5.0); Alkaline Phosphatase 72 U/L (40-110); Anion Gap 14 mmol/L (10-20); BUN (Urea Nitrogen) 10 mg/dL (9.8-20.1); Bilirubin, Total 0.2 mg/dL (0.2-1.2); Calc. Creatinine Clearance 0 mL/min (70-130); Calcium 7.4 mg/dL (7.8-10.44); Carbon Dioxide 25 mmol/L (22-29); Chloride 99 mmol/L (98-107); Globulin 1.3 g/dL (2.4-3.5); Glucose 89 mg/dL (70-105); Potassium 3.3 mmol/L (3.5-5.1); Protein, Total 4.4 g/dL (6.0-8.3); Sodium 135 mmol/L (136-145)
[2020-10-15 23:29] LABS: PTT 22.1 sec (22.9-36.1)
[2020-10-15 23:32] LABS: Band 6 % (5-11); Eosinophils 2 % (0-10); Lymphocytes 21 % (21-51); MDiff Complete? YES; Monocytes 9 % (0-10); Neutrophil 57 % (42-75); Reactive Lymphocytes 5 % (0-10)
--- NOTE | 2020-10-15 23:54 | ULT ---
Exam:Leftlower extremity venous ultrasound with Doppler HISTORY: Leftlower extremity swelling and pain COMPARISON: None TECHNIQUE: Grayscale, color flow, Doppler imaging and spectral wave muscle performed left lower extre mity venous system FINDINGS: There is compressibility, presence of flow and augmentation in the common femoral vein, femoral vein and popliteal vein. There is flow in the posterior tibial vein. There is flow in the greater saphenous vein and profunda femoral vein IMPRESSION: No thrombus in the left lower extremity deep venous system.
[2020-10-16] MEDS ORDERED: Ondansetron PF 4 MG/2 ML Vial ONE (01:13)
[2020-10-16 02:36] VITALS: BMI 27.3
[2020-10-16] MEDS ORDERED: Acetaminophen 325 MG TAB PO PRN (03:00)
[2020-10-16] MEDS ORDERED: Ondansetron ODT 4 MG TAB SL PRN (03:00)
[2020-10-16] MEDS ORDERED: Ondansetron PF 4 MG/2 ML Vial IVP PRN (03:00)
[2020-10-16] MEDS ORDERED: Communication Order-Pharmacy FS SCH (03:19)
[2020-10-16] MEDS ORDERED: hydrALAZINE 20 MG/ML VIAL SLOW IVP PRN (03:19)
[2020-10-16] MEDS ORDERED: Docusate 100 MG CAP PO PRN (03:19)
[2020-10-16] MEDS ORDERED: Labetalol HCl 100 MG/20 ML VIAL SLOW IVP PRN (03:19)
[2020-10-16] MEDS ORDERED: niCARdipine 25 MG in Sodium Chloride 0.9% 250 ML 250 ML IVPB PRN (03:19)
--- NOTE | 2020-10-16 03:50 | PDOC.HHP ---
Hospitalist HPI Dysarthria History of Present Illness: Patient is a 55 year old female with PMH multiple myeloma (s/p chemo, radiation, stem cell transplant 06/2019) who presented to ED for dysarthria. Patient reports symptoms first started with a cramp like sensation at about 10pm, she then developed dysarthria/expressive aphasia and L sided weakness, brought to ED on concern for stroke. In ED, NIHSS 12, initial CT scans negative for IC bleed, and patient given tPA. I examined after tPA complete, and patient back to baseline neurologic status, no weakness, talking and sounds normal. Patient still reports malaise and generally not feeling well, but no longer slurring speech. Patient takes aspirin 325mg daily, no other thinners. patient has multiple myeloma and recieved chemotherapy on Sunday IV and takes a PO chemotherapy pill as well. patient to be admitted to CCU for monitoring. Allergies/Adverse Reactions: Allergy/AdvReac Type Severity Reaction Status Date / Time oseltamivir [From Tamiflu] AdvReac Intermediate swelling Verified 11/07/19 20:38 valdecoxib [From Bextra] AdvReac Intermediate orbital Verified 11/07/19 20:38 edema Home Medications: Medication Instructions Recorded Confirmed Type Aspirin Chewable [Aspirin Chewable 81 mg PO HS 05/10/19 10/16/20 History Tablet] Denosumab [Xgeva] 120 mg SC Q30D 05/10/19 10/16/20 History Dexamethasone 20 mg PO Q7DAYS 05/10/19 10/16/20 History Lenalidomide [Revlimid] 25 mg PO DAILY 05/10/19 10/16/20 History Multivitamin [Multivitamins] 1 cap PO DAILY 05/10/19 10/16/20 History Omeprazole 20 mg PO QAM 05/10/19 10/16/20 History Ondansetron [Ondansetron ODT] 8 mg PO BID PRN 05/10/19 10/16/20 History Venlafaxine HCl [Effexor XR] 75 mg PO QAM 05/10/19 10/16/20 History valACYclovir [Valtrex] 500 mg PO HS 05/10/19 10/16/20 History Carfilzomib [Kyprolis] 10 mg IV ASDIR 10/23/19 10/16/20 History Albuterol Sulfate [Albuterol 2 puff INH Q6HR PRN 10/16/20 10/16/20 History Sulfate Hfa] Amlodipine Besylate [amLODIPine 5 mg PO DAILY 10/16/20 10/16/20 History Besylate] Furosemide 20 mg PO ASDIR 10/16/20 10/16/20 History Metoprolol Succinate 25 mg PO DAILY 10/16/20 10/16/20 History Potassium Chloride [Klor-Con 10] 10 meq PO ASDIR 10/16/20 10/16/20 History cloNIDine [Catapres] 0.1 mg PO ASDIR 10/16/20 10/16/20 History Past History: PMH: multiple myeloma (s/p chemo, radiation, stem cell transplant 06/2019) PSH: C spine fusion C5-C6, appendectomy, hysterectomy family history: not relevant, reviewed social history: social drinking, no drug or tobacco use Hospitalist HPI ROS Constitutional: reports: weakness, malaise. denies: fever, chills, sweats, other Eyes: denies: pain, vision change, conjunctivae inflammation, eyelid inflammation, redness, other ENT: denies: ear pain, ear discharge, nose pain, nose discharge, nose congestion, mouth pain, mouth swelling, throat pain, throat swelling, other Respiratory: denies: cough, dry, shortness of breath, hemoptysis, SOB with excertion, pleuritic pain, sputum, wheezing, other Cardiovascular: denies: chest pain, palpitations, orthopnea, paroxysmal noc. dyspnea, edema, light headedness, other Gastrointestinal: denies: nausea, vomiting, abdominal pain, diarrhea, constipation, melena, hematochezia, other Genitourinary: denies: dysuria, frequency, incontinence, hematuria, retention, other Musculoskeletal: denies: neck pain, shoulder pain, arm pain, back pain, hand pain, leg pain, foot pain, other Skin: denies: rash, lesions, edwin, bruising, other Neurological: reports: other (had L sided weakness and aphasia now resolved). denies: weakness, numbness, incoordination, change in speech, confusion, seizures All other systems reviewed; all pertinent +/- noted in HPI/Subj Hospitalist Exam Vitals: Vital Signs (12 hours) Temp 10/16/20 02:20 98.4 F Weight Weight 154 lb 5.177 oz Most Recent Monitor Data Heart Rate from ECG 75 NIBP 119/78 NIBP BP-Mean 91 Respiration from ECG 14 SpO2 96 General Appearance: NAD, awake alert Eye: PERRL, anicteric sclera ENT: normocephalic atraumatic, no oropharyngeal lesions, moist mucosa Neck: supple, symmetric, no JVD, no thyromegaly, no lymphadenopathy, no carotid bruit Heart: RRR, no murmur, no gallops, no rubs, normal peripheral pulses Respiratory: CTAB, no wheezes, no rales, no ronchi, normal chest expansion, no tachypnea, normal percussion Gastrointestinal: soft, non-tender, non-distended, normal bowel sounds, no palpable masses, no hepatomegaly, no splenomegaly, no bruit Extremities: no cyanosis, no clubbing, no edema Skin: normal turgor, no lesions, no rashes Neurological: cranial nerve grossly intact, normal sensation to touch, no weakness, no focal deficits, no new deficit Musculoskeletal: normal tone, normal strength, no muscle wasting Psychiatric: normal affect, normal behavior, A&O x 3 Hospitalist Results Result Diagrams: 10/15/20 22:51 10/15/20 22:51 Lab results: Laboratory Last Values WBC 5.9 thou/uL (4.8-10.8) 10/15/20 22:51 RBC 3.10 mill/uL (4.20-5.40) L 10/15/20 22:51 Hgb 10.7 g/dL (12.0-16.0) L 10/15/20 22:51 Hct 31.8 % (36.0-47.0) L 10/15/20 22:51 MCV 103.0 fL (78.0-98.0) H 10/15/20 22:51 MCH 34.6 pg (27.0-31.0) H 10/15/20 22:51 MCHC 33.7 g/dL (32.0-36.0) 10/15/20 22:51 RDW 12.1 % (11.5-14.5) 10/15/20 22:51 Plt Count 217 thou/uL (130-400) 10/15/20 22:51 MPV 6.3 fL (7.4-10.4) L 10/15/20 22:51 Neutrophils % (Manual) 57 % (42-75) 10/15/20 22:51 Band Neuts % (Manual) 6 % (5-11) 10/15/20 22:51 Lymphocytes % (Manual) 21 % (21-51) 10/15/20 22:51 Reactive Lymphs % 5 % (0-10) 10/15/20 22:51 Monocytes % (Manual) 9 % (0-10) 10/15/20 22:51 Eosinophils % (Manual) 2 % (0-10) 10/15/20 22:51 Lymphocytes # Not Reportable 10/15/20 22:51 PT 12.9 sec (12.0-14.7) 10/15/20 22:51 INR 1.0 10/15/20 22:51 APTT 22.1 sec (22.9-36.1) L 10/15/20 22:51 Sodium 135 mmol/L (136-145) L 10/15/20 22:51 Potassium 3.3 mmol/L (3.5-5.1) L 10/15/20 22:51 Chloride 99 mmol/L (98-107) 10/15/20 22:51 Carbon Dioxide 25 mmol/L (22-29) 10/15/20 22:51 Anion Gap 14 mmol/L (10-20) 10/15/20 22:51 BUN 10 mg/dL (9.8-20.1) 10/15/20 22:51 Creatinine 0.74 mg/dL (0.6-1.1) 10/15/20 22:51 Estimated GFR (MDRD) 82 10/15/20 22:51 Glucose 89 mg/dL (70-105) 10/15/20 22:51 POC Glucose 92 mg/dL (70-100) 10/15/20 22:33 Calcium 7.4 mg/dL (7.8-10.44) L 10/15/20 22:51 Total Bilirubin 0.2 mg/dL (0.2-1.2) 10/15/20 22:51 AST 18 U/L (5-34) 10/15/20 22:51 ALT 26 U/L (8-55) 10/15/20 22:51 Alkaline Phosphatase 72 U/L (40-110) 10/15/20 22:51 Troponin I 0.015 ng/mL (< 0.028) 10/15/20 22:51 Serum Total Protein 4.4 g/dL (6.0-8.3) L 10/15/20 22:51 Albumin 3.1 g/dL (3.5-5.0) L 10/15/20 22:51 Globulin 1.3 g/dL (2.4-3.5) L 10/15/20 22:51 Albumin/Globulin Ratio 2.4 g/dL (1.2-2.2) H 10/15/20 22:51 Additional comment: labs, imaging reports, ED notes reviewed. CT Aortic Dissection Protocol Observe DT: SunOct 15, 2020 IMPRESSION: No CT evidence for aortic aneurysm or aortic dissection. Results study discussed with Dr. Seals 10/15/2020 at 11:02 PM Code CR CTA Angio Head W WO Con Observe DT: SunOct 15, 2020 IMPRESSION: 1. No hemodynamically significant stenosis, occlusion or aneurysmal formation. CT Brain WO Con Observe DT: SunOct 15, 2020 IMPRESSION: No acute intracranial process. Hospitalist H&P A/P Plan: Patient is a 55 year old female with PMH multiple myeloma (s/p chemo, radiation, stem cell transplant 06/2019) who presented to ED for dysarthria. # presumed ischemic stroke s/p tPA Patient reports symptoms first started with a cramp like sensation at about 1 0pm, she then developed dysarthria/expressive aphasia and L sided weakness, brought to ED on concern for stroke. In ED, NIHSS 12, initial CT scans negative for IC bleed, and patient given tPA. I examined after tPA complete, and patient back to baseline neurologic status, no weakness, talking and sounds normal. Patient still reports malaise and generally not feeling well, but no longer slurring speech. Patient takes aspirin 325mg daily, no other thinners. patient has multiple myeloma and recieved chemotherapy on Sunday IV and takes a PO chemotherapy pill as well, revlimid. - patient to be admitted to CCU for monitoring after tPA - neurochecks - consult neurology - resume asa and lovenox in 24h - MRI brain w/wo contrast - echo, no known history of afib, monitor on telemetry - CT head negative for IC acute changes, CTA chest no dissection, CTA head no hemodynamically significant stenosis, follow up MRI # history of myeloma on chemotherapy - consult oncology (Dr Fontanez electronic component processor, Dr Ashley is usual oncology) - hold chemotherapy for now, continue prophylactic medications # COPD - was diagnosed with COPD recently but uses no nebs, wants to know more about her diagnoses, pulmonary is going to see her today and perhaps she can establish case for COPD - start claritin and inhaler PRN # anemia - suspect due to cheomtherapy and myeloma # hypokalemia - replacement parameters DVT ppx - csd
[2020-10-16] MEDS ORDERED: Albuterol 200 PUFF (6.7GM INHALER) INH PRN (04:13)
[2020-10-16] MEDS ORDERED: Loratadine 10 MG TAB PO PRN (04:13)
[2020-10-16 05:28] LABS: SARS-CoV-2 PCR by NAA Not Detected (NotDetected)
[2020-10-16] MEDS ORDERED: Loratadine 10 MG TAB PO SCH (08:15)
[2020-10-16] MEDS ORDERED: FLU VACC QS2020-21(6MOS UP)/PF 60 MCG/0.5 ML SYRINGE IM ONE (09:00)
[2020-10-16 09:48] LABS: Bacteria/HPF None Seen HPF (None Seen); Bilirubin Negative (Negative); Blood, Urine Trace (Negative); Clarity Clear (Clear); Glucose, Urine (Dipstick) Normal (Negative); Ketone, Urine Negative (Negative); Leukocyte Negative Leu/uL (Negative); Nitrite Negative (Negative); Protein, Urine (Dipstick) Negative (Neg-Trace); RBC/HPF 0-3 HPF (0-3); Squamous Epithelial 0-3 HPF (0-3); Urobilinogen Normal mg/dL (Less than 2); WBC/HPF 0-3 HPF (0-3)
--- NOTE | 2020-10-16 10:09 | CT ---
Exam: CT brain PROVIDED CLINICAL HISTORY: Stroke COMPARISON: 10/15/2020 FINDINGS: The ventricular system is normal in size and morphology. No evidence for intracranial hemorrhage or mass effect. The extracranial soft tissues and osseous structures demonstrate no evidence for an acute abnormality. IMPRESSION: No evidence for intracranial hemorrhage or mass effect.
--- NOTE | 2020-10-16 12:04 | MRI ---
EXAM: MRI Brain W WO Con PROVIDED CLINICAL HISTORY: Stroke. History of melanoma. Evaluate for metastatic disease. COMPARISON: CT head on 10/16/2020 FINDINGS: Scattered punctate areas of increased FLAIR and T2-weighted signal intensity are seen in the perivent ricular and subcortical white matter with increased signal intensity seen within the ute bilaterally, and these findings are nonspecific but likely related to mild chronic small vessel ische adriana changes. No restricted diffusion is seen to suggest an acute infarction. No abnormal areas of enhancement are seen after the administration of intravenous contrast. Septum pellucidum and third ventricle are in the midline. The ventricular system is normal in size, s hape, and position. Appropriate flow voids are demonstrated in the large intracranial vessels at the base of the brain. T here is evidence of an empty sella turcica. The orbits, paranasal sinuses, and skull base demonstrate a normal MRI appearance. IMPRESSION: 1. No acute intracranial abnormalities demonstrated. 2. No findings to suggest metastatic disease. 3. Chronic small vessel ischemic changes. 4. Incidental note is made of an empty sella turcica.
[2020-10-16] MEDS ORDERED: Magnevist 469MG/ML 20 ML VIAL ONE (12:22)
--- NOTE | 2020-10-16 15:05 | PDOC.HOSPP ---
- Subjective Encounter Date: 10/16/20 Encounter Time: 08:45 Subjective: feels good, is speaking well, no weakness on her left side now has ambulated to bedside commode - Objective Vital Signs & Weight: Vital Signs (12 hours) Resp Pulse Ox 10/16/20 06:27 98 10/16/20 03:19 12 Weight Weight 2.522 oz Most Recent Monitor Data Heart Rate from ECG 76 NIBP 109/73 NIBP BP-Mean 85 Respiration from ECG 16 SpO2 95 I&O: 10/15/20 10/16/20 10/17/20 06:59 06:59 06:59 Intake Total 0 Output Total 0 330 Balance 0 -330 Result Diagrams: 10/15/20 22:51 10/15/20 22:51 Additional Labs: Accuchecks 10/15/20 22:33 POC Glucose 92 Hospitalist ROS - Medication Medications: Active Medications Generic Name Dose Route Start Last Admin Trade Name Freq PRN Reason Stop Dose Admin Miscellaneous Information 1 each 10/16/20 03:19 10/16/20 10:22 Communication Order-Pharmacy FS 10/16/20 23:59 1 each NOW [facility] Administration Hospitalist Exam Vitals: Vital Signs (12 hours) Resp Pulse Ox 10/16/20 06:27 98 10/16/20 03:19 12 Weight Weight 2.522 oz Most Recent Monitor Data Heart Rate from ECG 76 NIBP 109/73 NIBP BP-Mean 85 Respiration from ECG 16 SpO2 95 General Appearance: awake alert Eye: PERRL, anicteric sclera ENT: no oropharyngeal lesions, moist mucosa Neck: supple, no JVD Heart: RRR, no murmur Respiratory: no wheezes, no rales Gastrointestinal: soft, non-tender, non-distended, normal bowel sounds Extremities: no cyanosis, no edema Neurological: cranial nerve grossly intact, no focal deficits Psychiatric: normal affect, A&O x 3 Hosp A/P (1) Acute CVA (cerebrovascular accident) Code(s): I63.9 - CEREBRAL INFARCTION, UNSPECIFIED Status: Acute (2) COPD (chronic obstructive pulmonary disease) Status: Chronic Qualifiers: COPD type: chronic bronchitis Chronic bronchitis type: unspecified Qualified Code(s): J42 - Unspecified chronic bronchitis (3) Chronic anemia Code(s): D64.9 - ANEMIA, UNSPECIFIED Status: Chronic (4) Multiple myeloma Code(s): C90.00 - MULTIPLE MYELOMA NOT HAVING ACHIEVED REMISSION Status: Chronic Qualifiers: Multiple myeloma remission status: unspecified Qualified Code(s): C90.00 - Multiple myeloma not having achieved remission - Plan is s/p tPA with complete resolution of left sided weakness and dysarthria h/o multiple myeloma on chemotherapy infusions last one was on sunday, h/o stem cell tx done in 2019 at [facility] continue asp, lipitor and her home meds for myeloma after tPA protocol december tx to stroke unit after tPA protocol hemo/neurostable d/w patient and over phone and gave full updates stroke team to see her. all imaging studies for brain are -ve for cva
--- NOTE | 2020-10-16 15:47 | CON ---
NEUROLOGY CONSULTATION DATE OF CONSULTATION: 10/16/2020 REASON FOR CONSULTATION: Dysarthria, status post tPA. HISTORY OF PRESENT ILLNESS: Ms. Rosina Candelario is a 55-year-old female with medical history significant for multiple myeloma status post chemotherapy, radiation and stem cell transplant in June 2019, who presented to the emergency room because of an episode of dysarthria. Per patient, the symptoms started as a cramp like sensation about 10:00 p.m. and then she developed dysarthria and expressive aphasia with left-sided weakness, so the family decided to bring her to the emergency room because of stroke. In the emergency room, the NIH Stroke Scale was 12. Head CT was done initially, which was negative for intracranial pathology or bleed. She was given tPA and her deficits improved, and she is now back to the baseline with no deficits. The patient denies nausea, vomiting, headache, chest pain, abdominal pain, recent illness, double vision, loss of vision, abnormal involuntary movements, recent sick contacts or exposure to COVID-19. The patient takes baby aspirin daily, but no other blood thinners since she has multiple myeloma and has been receiving chemotherapy. The patient is admitted to CCU for further monitoring. Allergies/Adverse Reactions: Allergy/AdvReac Type Severity Reaction Status Date / Time oseltamivir [From Tamiflu] AdvReac Intermediate swelling Verified 11/07/19 20:38 valdecoxib [From Bextra] AdvReac Intermediate orbital Verified 11/07/19 20:38 edema Home Medications: Medication Instructions Recorded Confirmed Type Aspirin Chewable [Aspirin Chewable 81 mg PO HS 05/10/19 10/16/20 History Tablet] Denosumab [Xgeva] 120 mg SC Q30D 05/10/19 10/16/20 History Dexamethasone 20 mg PO Q7DAYS 05/10/19 10/16/20 History Lenalidomide [Revlimid] 25 mg PO DAILY 05/10/19 10/16/20 History Multivitamin [Multivitamins] 1 cap PO DAILY 05/10/19 10/16/20 History Omeprazole 20 mg PO QAM 05/10/19 10/16/20 History Ondansetron [Ondansetron ODT] 8 mg PO BID PRN 05/10/19 10/16/20 History Venlafaxine HCl [Effexor XR] 75 mg PO QAM 05/10/19 10/16/20 History valACYclovir [Valtrex] 500 mg PO HS 05/10/19 10/16/20 History Carfilzomib [Kyprolis] 10 mg IV ASDIR 10/23/19 10/16/20 History Albuterol Sulfate [Albuterol 2 puff INH Q6HR PRN 10/16/20 10/16/20 History Sulfate Hfa] Amlodipine Besylate [amLODIPine 5 mg PO DAILY 10/16/20 10/16/20 History Besylate] Furosemide 20 mg PO ASDIR 10/16/20 10/16/20 History Metoprolol Succinate 25 mg PO DAILY 10/16/20 10/16/20 History Potassium Chloride [Klor-Con 10] 10 meq PO ASDIR 10/16/20 10/16/20 History cloNIDine [Catapres] 0.1 mg PO ASDIR 10/16/20 10/16/20 History PAST MEDICAL HISTORY: Multiple myeloma status post chemotherapy, radiation and stem cell transplant in June 2019. PAST SURGICAL HISTORY: C-spine fusion C5-C6, appendectomy, hysterectomy. FAMILY HISTORY: No significant family history. SOCIAL HISTORY: The patient drinks socially, but denies illegal drug abuse or tobacco abuse. REVIEW OF SYSTEMS: All systems reviewed and were negative except the pertinent positives and negatives mentioned in the HPI. Vital Signs & Weight: Vital Signs (12 hours) Resp Pulse Ox 10/16/20 06:27 98 10/16/20 03:19 12 Weight Weight 2.522 oz Most Recent Monitor Data Heart Rate from ECG 76 NIBP 109/73 NIBP BP-Mean 85 Respiration from ECG 16 SpO2 95 I&O: 10/15/20 10/16/20 10/17/20 06:59 06:59 06:59 Intake Total 0 Output Total 0 330 Balance 0 -330 Active Medications Generic Name Dose Route Start Last Admin Trade Name Freq PRN Reason Stop Dose Admin Miscellaneous Information 1 each 10/16/20 03:19 10/16/20 10:22 Communication Order-Pharmacy FS 10/16/20 23:59 1 each NOW RAEGAN Administration PHYSICAL EXAMINATION: General Appearance: awake alert Eye: PERRL, anicteric sclera ENT: no oropharyngeal lesions, moist mucosa Neck: supple, no JVD Heart: RRR, no murmur Respiratory: no wheezes, no rales Gastrointestinal: soft, non-tender, non-distended, normal bowel sounds Extremities: no cyanosis, no edema Neurological:Mental status, the patient is alert and oriented to person, place, and time. Recent and remote memory intact. Fund of knowledge is appropriate. Speech is clear. Cranial nerves 2 through 12 intact. Motor, muscle tone and bulk are normal. Strength 5/5 bilaterally. Sensory intact. Cerebellar, finger-nose testing intact. Gait deferred due to patient's safety reasons. DATA REVIEW: Reviewed the labs which were significant for anemia, hemoglobin of 10.7, hematocrit 31.8, and also mild hyponatremia with a sodium of 135 and hypokalemia with potassium of 3.3. CT angiogram of the head did not reveal any hemodynamically significant stenosis. CTA of the neck did not reveal any hemodynamically significant stenosis. ASSESSMENT AND PLAN: (1) Acute CVA (cerebrovascular accident) Code(s): I63.9 - CEREBRAL INFARCTION, UNSPECIFIED Status: Acute (2) COPD (chronic obstructive pulmonary disease) Status: Chronic Qualifiers: COPD type: chronic bronchitis Chronic bronchitis type: unspecified Qualified Code(s): J42 - Unspecified chronic bronchitis (3) Chronic anemia Code(s): D64.9 - ANEMIA, UNSPECIFIED Status: Chronic (4) Multiple myeloma Code(s): C90.00 - MULTIPLE MYELOMA NOT HAVING ACHIEVED REMISSION Status: Chronic Qualifiers: Multiple myeloma remission status: unspecified Qualified Code(s): C90.00 - Multiple myeloma not having achieved remission Ms. Rosina Candelario is a 55-year-old female with history significant for multiple myeloma, who presented with dysarthria and left-sided weakness which resolved after receiving tPA. She is back to her baseline, most likely TIA. MRI of the brain reviewed which was negative for acute intracranial pathology. Echo completed, results pending; continue telemetry to rule out arrhythmias. CTA of the head and neck did not reveal hemodynamically significant stenosis. Hold antiplatelets and anticoagulants for the next24 hours post tPA. Repeat head CT 24 hours post tPA and if negative, then restart aspirin. The patient may benefit from addition of Plavix but confirmed with her oncologists before starting the medication since the patient has complete concerns because she has been receiving chemotherapy about the drug interactions. Neuro checks every 2 hours. Check hemoglobin A1c, fasting lipid panel, and TSH. Start high-intensity statin for secondary stroke prevention. PT/OT/speech. DVT prophylaxis with SCDs. Continue home medications. Strict control of blood pressure and blood glucose. Continue medical management per primary team. We will continue to follow. Plan discussed in detail with the patient, at bedside and also with the nursing staff. Thank you for the consult. Job ID: [id number] BALDEMAR
[2020-10-16] MEDS ORDERED: Atorvastatin Calcium 40 MG TAB PO SCH (21:00)
--- NOTE | 2020-10-17 01:38 | CON ---
DATE OF CONSULTATION: 10/16/2020 REASON FOR CONSULTATION: TIA in the setting of multiple myeloma. HISTORY OF PRESENT ILLNESS: The patient is a 55-year-old woman with known multiple myeloma since January 2019 when she presented with a thoracic plasmacytoma. She was found to have systemic myeloma based upon multiple additional studies including bone marrow biopsy and aspirate. Since that time, she has undergone a number of treatments to include a stem-cell transplant at [facility] in June 2019. Thereafter, she was placed on aggressive KRd consolidation and has done well. 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 On the evening of admission, she developed the abrupt onset of left lower extremity cramping, followed by left-sided weakness and an expressive aphasia and dysarthria. She was evaluated in the emergency room and imaging studies to include CT angiograms and MRI of the brain showed no focal findings. However, she was empirically treated with tPA with complete resolution of neurological deficits. She is now back to baseline and comfortable. I am asked to see the patient to provide further management recommendations. ALLERGIES: NONE EXCEPT FOR BEXTRA. MEDICAL ILLNESS: There is a history of depression in 2001, but no other significant medical problems. MEDICATIONS: 1. Baby aspirin daily. 2. Chemotherapy consisting of Kyprolis, dexamethasone, and Revlimid. 3. Effexor. 4. Valtrex. 5. Albuterol inhaler. 6. Amlodipine. 7. Furosemide. 8. Lopressor. 9. Catapres. PAST SURGICAL HISTORY: Appendectomy, hysterectomy, and cervical spine fusion; all in the remote past. FAMILY HISTORY: There is a history of lung and kidney cancer in the family. There is no history of hematologic disorder. PERSONAL HISTORY: The patient has 3 children, is , and lives with her who is present at the time of the evaluation. She is a former smoker, having smoked minimally. She drinks rarely. 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 REVIEW OF SYSTEMS: Except as mentioned in the history of present illness, she denies significant cardiopulmonary, GI, , musculoskeletal, or neurological complaints. PHYSICAL EXAMINATION: VITAL SIGNS: Temperature 98.8, pulse 87 and regular, respirations 16, blood pressure 108/75. GENERAL: The patient is well-developed and well-nourished woman, in no acute distress. She is alert, oriented, and cooperative. HEENT: Extraocular movements are intact. Pupils are equal, round, reactive to light. NECK: Supple. LUNGS: Clear. CARDIOVASCULAR: Regular rate and rhythm without murmur, rub, gallop, click. ABDOMEN: No tenderness, organomegaly, masses, bruits, or ascites. EXTREMITIES: No clubbing, cyanosis, or edema. SKIN: Without rash. LYMPH: No adenopathy. MUSCULOSKELETAL: No active arthritis. NEUROLOGICAL: No focal findings. Cranial nerves 2-12 grossly intact. LABORATORY DATA: White blood cell count 5.9, hemoglobin 10.7, and platelet count 217,000. Electrolytes and renal function normal except for a potassium of 3.3. Baseline coagulation studies are normal. IMAGING DATA: As mentioned, a noncontrast CT of the brain, a CT with contrast of saxman of Bal, a vascular ultrasound of the neck, and an MRI of the brain all were without focal findings of significance. On the MRI, there were some chronic small vessel ischemic changes of unclear significance. IMPRESSION: 1. Multiple myeloma, currently under excellent control, on current aggressive maintenance therapy, status post stem cell transplant, June 2019. 2. Transient ischemic attack/evolving neurological deficit, resolved with tPA therapy. RECOMMENDATIONS: I discussed the findings at some length with the patient and her . The thrombotic event occurred on a baby aspirin which she was taking faithfully. Therefore, I would be concerned about the need for a change in antithrombotic therapy. I will discuss this further with Dr. Ashley, her primary oncologist. Options would include advancing the aspirin dose to 325 mg daily, switching to Plavix, or full-dose anticoagulation. At this point, in the next 24 to 48 hours, resuming aspirin therapy is reasonable. Thanks very much for allowing me to provide my recommendations. Eliot Fontanez MD Job ID: [id number] MTDD
[2020-10-17 07:40] LABS: Anion Gap 14 mmol/L (10-20); BUN (Urea Nitrogen) 14 mg/dL (9.8-20.1); Calc. Creatinine Clearance 86 mL/min (70-130); Calcium 9.2 mg/dL (7.8-10.44); Carbon Dioxide 28 mmol/L (22-29); Chloride 104 mmol/L (98-107); Cholesterol 284 mg/dl (< 200 Desired); Glucose 98 mg/dL (70-105); HDL Cholesterol 96 mg/dL (>60 Neg Risk); LDL Cholesterol, Calculated 152 mg/dL; Potassium 4.6 mmol/L (3.5-5.1); Sodium 141 mmol/L (136-145); Triglycerides 182 mg/dL (Less than 150)
--- NOTE | 2020-10-17 07:46 | CT ---
PRELIMINARY REPORT/[facility]/AFTER HOURS PROCEDURE CT HEAD WITHOUT INTRAVENOUS CONTRAST: CLINICAL HISTORY: Status post TPA. TIA. TECHNIQUE: Axial computed tomography images of the head/brain without intravenous contrast. COMPARISON: CT brain without contrast from 10/16/20 at 9:52 a.m. [facility] NE[facility]. FINDINGS: BRAIN: No acute intraparenchymal hemorrhage. No mass lesion. No CT evidence for acute territorial inf arct. No midline shift or extra-axial collection. VENTRICLES: No hydrocephalus. ORBITS: The orbits are unremarkable. SINUSES AND MASTOIDS: The paranasal sinuses and mastoid air cells are clear. SOFT TISSUES: No significant facial or scalp soft tissue swelling evident. No radiopaque foreign body is seen. BONES: No acute skull fracture. IMPRESSION: No evidence of acute intracranial hemorrhage. ELECTRONICALLY SIGNED BY: Trace Young MD Oct 17, 2020 12:27:33 AM [employer] NEUROPSYCHOLOGIST This report is intended for review by the ordering physician only, in accordance of law. If you recei ve this report in error, please call [facility] at [phone]. FINAL REPORT EMERGENT AFTER HOURS NONCONTRAST CT HEAD: HISTORY: Post TPA. TIA. COMPARISON: 10/16/2020 IMPRESSION: 1. Stable CT head without evidence of an acute intracranial abnormality demonstrated. 2. Findings are in agreement with preliminary report by [facility]. CODE QA Transcribed Date/Time: 10/17/2020 10:05 AM
[2020-10-17 08:09] LABS: Band 4 % (5-11); Eosinophils 10 % (0-10); Hemoglobin 13.3 g/dL (12.0-16.0); Lymphocytes 30 % (21-51); MDiff Complete? YES; Mean Corpuscular HGB CONC 32.7 g/dL (32.0-36.0); Mean Corpuscular Hemoglobin 33.8 pg (27.0-31.0); Mean Platelet Volume 6.7 fL (7.4-10.4); Monocytes 8 % (0-10); Neutrophil 48 % (42-75); Platelet Count 225 thou/uL (130-400); RBC Distribution Width 12.4 % (11.5-14.5); Red Blood Cell (RBC) Count 3.94 mill/uL (4.20-5.40); White Blood Cell (WBC) Count 4.7 thou/uL (4.8-10.8)
[2020-10-17] MEDS ORDERED: Clopidogrel Bisulfate 75 MG TAB PO SCH (09:00)
[2020-10-17] MEDS ORDERED: Aspirin 325 mg Enteric Coated Tablet PO SCH (09:00)
[2020-10-17] MEDS ORDERED: Enoxaparin Sodium 40 MG/0.4 ML SYRINGE SC SCH (09:00)
[2020-10-17 11:21] VITALS: BP 123/81; TEMP 97.9
--- NOTE | 2020-10-18 08:42 | DIS ---
DATE OF ADMISSION: 10/16/2020 DATE OF DISCHARGE: 10/17/2020 DISCHARGE DISPOSITION: To home. PRIMARY DISCHARGE DIAGNOSES: Left-sided weakness with dysarthria on arrival, resolved; possible acute cerebrovascular accident, status post tPA. SECONDARY DISCHARGE DIAGNOSES: History of multiple myeloma, suspected chronic obstructive pulmonary disease, chronic anemia. PROCEDURES DONE DURING HOSPITALIZATION: CT angio of the head and neck done showed no hemodynamically significant stenosis or occlusion or aneurysm formation. CT brain showed no acute intracranial process on arrival. MRI brain showed no acute intracranial abnormality. Incidental note is made of empty sella turcica. Echo with 2D Doppler showed ejection fraction of 55% to 60%, grade 1/3 diastolic dysfunction. H and H 13 and 40, platelet count 225. White count of 4.7. PT/INR within normal limits. PTT 22, BUN 14, creatinine 0.8. Total cholesterol 284, triglycerides 182, LDL 152, HDL 96. COVID-19 PCR was not detected on 10/16/2020. DISCHARGE MEDICATIONS: 1. Plavix 75 mg p.o. daily. 2. Protonix 40 mg p.o. daily. 3. Lipitor 40 mg p.o. q.h.s. 4. Denosumab 120 mg subcu once a month. 5. Valtrex 500 mg p.o. q.h.s. 6. Lenalidomide 25 mg daily. 7. Zofran p.r.n. 8. Multivitamin daily. 9. Metoprolol succinate extended release 25 mg daily. 10. Kyprolis 10 mg IV as directed. 11. Venlafaxine extended release 75 mg p.o. q.a.m. 12. Dexamethasone 20 mg p.o. once weekly. 13. Norvasc 5 mg p.o. daily. 14. Albuterol inhaler q.6 hourly p.r.n. ALLERGIES: TO OSELTAMIVIR AND VALDECOXIB. INPATIENT CONSULTS: 1. Dr. Weaver for Neurology. 2. Dr. Fontanez for Oncology. DISCHARGE PLAN: The patient to follow up with her primary care physician, Dr. Jorge Cooper, in 1 week. She also needs to follow up with her oncologist in 1 week. BRIEF COURSE DURING HOSPITALIZATION: The patient initially got admitted on 10/15/2020 with history of left-sided weakness and dysarthria. The patient had an NIH score of 12. She was within the window for tPA and was administered in the ER. Initial CT brain did not reveal any acute infarct or bleed. CT angio did not reveal any aneurysm or obstruction. The patient has history of multiple myeloma and is on chemotherapy with prior history of stem cell transplant done in 2019 at [facility]. In view of post tPA, the patient was admitted to ICU. She was downgraded after 24-hour protocol. As part of the protocol, she has had CT brain without contrast done, which had not shown any bleed. MRI brain done did not reveal any acute infarct or bleed. Her initial left-sided weakness and dysarthria completely resolved after tPA. Likely, the patient has had acute CVA with complete resolution with tPA. She had elevated LDL and was placed on Lipitor. As the patient was taking aspirin prior to arrival, she was switched over to Plavix. She has ambulated well on the floor and is eating well. She is hemodynamically and neurologically stable for discharge. Please note, I have seen and examined the patient on the day of discharge. Job ID: [id number]
--- NOTE | 2020-10-19 10:32 | CT ---
EXAM: CT ANGIOGRAM OF THE HEAD AND NECK INDICATION: Level 1 stroke. Aphasia. Altered mental status. COMPARISON: None TECHNIQUE: CT angiogram of the head and neck are performed in the axial plane. Three-dimensional refo rmatted images are submitted for interpretation. FINDINGS: CTA OF THE HEAD WITH AND WITHOUT CONTRAST: POSTCONTRAST CT OF BRAIN: Pathologic enhancement: No pathologic enhancement the brain. Postcontrast soft tissue neck CT: Aerodigestive tract:Aerodigestive tract is patent. No mucosal abnormality. Limited evaluation of the oral cavity due to dental amalgam artifact. Epiglottis has a normal caliber. Preepiglottic fat is preserved. Sinuses: Adequate aeration of the paranasal sinuses and mastoid air cells.. Orbits: Bilateral ocular lenses are appropriately located. Both globes are intact. Retrobulbar fat is preserved. Symmetric attenuation the optic nerves and ocular rectus muscles. Salivary glands:Appropriate attenuation of the parotid and submandibular glands. Thyroid gland: Appropriate attenuation of the thyroid gland. Lymph nodes: No evidence of lymphadenopathy by size criteria. Paraspinal muscles: Symmetric attenuation of the sternocleidomastoid muscles. Appropriate attenuation of the paraspinal muscles. Cervical spine:Cervical spine vertebral body heights are maintained. No fracture. There are postsurgi sharonda changes at C5 and C6. Varying degrees of foraminal stenosis on the basis of degenerative change. Upper mediastinum and lung apices: No acute abnormality CTA OF THE NECK WITH CONTRAST: Aorta: Unremarkable Right carotid artery: Appropriate enhancement and luminal diameter. No significant stenosis based upo n NASCET criteria Left carotid: Appropriate enhancement and luminal diameter. No significant stenosis based upon NASCET criteria Subclavian arteries:Symmetric and patent Vertebral arteries:Patent left and right vertebral arteries. Dominant left vertebral artery. CTA OF THE BRAIN: Intracranial internal carotid arteries:Appropriate enhancement and luminal diameter Anterior circulation: Appropriate enhancement and luminal diameter the A1 segment, M1 segment, proxim al A2 segment and proximal MCA branches. Intracranial vertebral arteries: Patent. Limited evaluation of PICA artery origins. Posterior circulation: Normal caliber basilar artery and bilateral P1 segments IMPRESSION: 1. No hemodynamically significant stenosis, occlusion or aneurysmal formation. Results of study discussed with Dr. Seals 10/15/2020 at 10:57 PM Code CR Transcribed Date/Time: 10/19/2020 10:32 AM
== END 2020-10-17 12:13 | disposition home or self-care (01) | DRG 62 ==
LOC: ERS 22:31 → CCU 10-16 00:16 → 2SE 10-17 04:24
PROVIDERS: ADMIT Internal Medicine; ATTEND Internal Medicine
DX: I63.9 Cerebral infarction, unspecified (principal); Z94.84 Stem cells transplant status; C90.00 Multiple myeloma not having achieved remission; G81.94 Hemiplegia, unspecified affecting left nondominant side; R47.01 Aphasia; R29.712 NIHSS score 12; R47.1 Dysarthria and anarthria; J44.9 Chronic obstructive pulmonary disease, unspecified; D64.9 Anemia, unspecified; E87.6 Hypokalemia; Z20.822 Contact with and (suspected) exposure to COVID-19; Z79.51 Long term (current) use of inhaled steroids; Z92.3 Personal history of irradiation; Z79.899 Other long term (current) drug therapy; Z90.49 Acquired absence of other specified parts of digestive tract; Z90.710 Acquired absence of both cervix and uterus; Z92.21 Personal history of antineoplastic chemotherapy; Z80.1 Family history of malignant neoplasm of trachea, bronchus and lung; Z82.49 Family history of ischemic heart disease and other diseases of the circulatory system; Z83.3 Family history of diabetes mellitus; Z85.79 Personal history of other malignant neoplasms of lymphoid, hematopoietic and related tissues; Z80.51 Family history of malignant neoplasm of kidney
CPT/HCPCS: 36415; 36416; 70450; 70496; 70498; 70553; 71275; 74174; 80048; 80053; 80061; 81001; 84484; 85025; 85610; 85730; 87635; 93005; 93306; 96365; 96374; 96376; 99292; A9579; J2405; J2997; Q9967; U0003; U0005

== ENCOUNTER 2021-05-26 07:51 | Outpatient (CLI) | payer OTHER | END 2021-05-26 07:52 | disposition home or self-care (01) | LOC: PET 07:51 | PROVIDERS: ATTEND Internal Medicine Hematology & Oncology | DX: C90.30 Solitary plasmacytoma not having achieved remission (principal); C79.51 Secondary malignant neoplasm of bone | CPT/HCPCS: 78816; A9552 ==

== ENCOUNTER 2021-06-30 16:01 | Outpatient (CLI) | payer OTHER | END 2021-06-30 16:02 | disposition home or self-care (01) | LOC: BICMAMMO 16:01 | PROVIDERS: ATTEND Obstetrics & Gynecology | DX: Z12.31 Encounter for screening mammogram for malignant neoplasm of breast (principal); Z80.3 Family history of malignant neoplasm of breast; Z85.89 Personal history of malignant neoplasm of other organs and systems | CPT/HCPCS: 77063; 77067 ==

== ENCOUNTER 2021-11-19 20:21 | Observation (INO) | payer BC ==
[2021-11-19] MEDS ORDERED: Ondansetron PF 4 MG/2 ML Vial ONE (21:01)
[2021-11-19 21:05] LABS: #Basophils 0.1 thou/uL (0.0-0.2); #Eosinphils 0.3 thou/uL (0.0-0.7); #Lymphocytes 1.9 thou/uL (1.20-3.40); #Monocytes 0.3 thou/uL (0.11-0.59); #Neutrophils 2.2 thou/uL (1.40-6.50); %Basophils 1.3 % (0.0-1.0); %Eosinophils 5.5 % (0.0-10.0); %Lymphocytes 40.4 % (21.0-51.0); %Monocytes 6.2 % (0.0-10.0); %Neutrophils 46.7 % (42.0-75.0); Hemoglobin 11.9 g/dL (12.0-16.0); Mean Corpuscular HGB CONC 32.9 g/dL (32.0-36.0); Mean Corpuscular Hemoglobin 33.6 pg (27.0-31.0); Mean Platelet Volume 6.4 fL (7.4-10.4); Platelet Count 296 thou/uL (130-400); RBC Distribution Width 13.4 % (11.5-14.5); Red Blood Cell (RBC) Count 3.53 mill/uL (4.20-5.40); White Blood Cell (WBC) Count 4.8 thou/uL (4.8-10.8)
[2021-11-19 21:19] LABS: Prothrombin Time 13.4 sec (12.0-14.7)
[2021-11-19 21:20] LABS: PTT 22.9 sec (22.9-36.1)
[2021-11-19 21:29] LABS: ALT (SGPT) 24 U/L (8-55); AST (SGOT) 23 U/L (5-34); Albumin 3.7 g/dL (3.5-5.0); Alkaline Phosphatase 106 U/L (40-110); Anion Gap 15 mmol/L (10-20); BUN (Urea Nitrogen) 10 mg/dL (9.8-20.1); Bilirubin, Total 0.4 mg/dL (0.2-1.2); Calc. Creatinine Clearance 0 mL/min (70-130); Calcium 7.9 mg/dL (7.8-10.44); Carbon Dioxide 22 mmol/L (22-29); Chloride 97 mmol/L (98-107); Globulin 1.7 g/dL (2.4-3.5); Glucose 154 mg/dL (70-105); Potassium 3.3 mmol/L (3.5-5.1); Protein, Total 5.4 g/dL (6.0-8.3); Sodium 131 mmol/L (136-145)
[2021-11-19] MEDS ORDERED: Ondansetron ODT 4 MG TAB SL PRN (22:30)
[2021-11-19] MEDS ORDERED: Acetaminophen 325 MG TAB PO PRN (22:30)
[2021-11-19] MEDS ORDERED: Ondansetron PF 4 MG/2 ML Vial IVP PRN (22:30)
[2021-11-19] MEDS ORDERED: Labetalol HCl 100 MG/20 ML VIAL SLOW IVP PRN (22:33)
[2021-11-19] MEDS ORDERED: hydrALAZINE 20 MG/ML VIAL SLOW IVP PRN (22:33)
[2021-11-19] MEDS ORDERED: Aspirin Chewable 81 MG TAB ONE (22:41)
[2021-11-19] MEDS ORDERED: Potassium Chloride 20 MEQ TAB ONE (22:41)
[2021-11-19 22:47] LABS: Magnesium 1.7 mg/dL (1.6-2.6)
[2021-11-20 00:14] LABS: Troponin I Less than 0.010 ng/mL (< 0.028)
[2021-11-20 00:38] VITALS: BMI 53.1
[2021-11-20 04:18] LABS: #Basophils 0.1 thou/uL (0.0-0.2); #Eosinphils 0.1 thou/uL (0.0-0.7); #Monocytes 0.3 thou/uL (0.11-0.59); #Neutrophils 4.1 thou/uL (1.40-6.50); %Basophils 1.2 % (0.0-1.0); %Eosinophils 1.4 % (0.0-10.0); %Lymphocytes 17.4 % (21.0-51.0); %Monocytes 4.7 % (0.0-10.0); %Neutrophils 75.4 % (42.0-75.0); Hemoglobin 12.9 g/dL (12.0-16.0); Mean Corpuscular Hemoglobin 34.3 pg (27.0-31.0); Mean Platelet Volume 6.5 fL (7.4-10.4); Platelet Count 286 thou/uL (130-400); RBC Distribution Width 13.3 % (11.5-14.5); Red Blood Cell (RBC) Count 3.77 mill/uL (4.20-5.40); White Blood Cell (WBC) Count 5.5 thou/uL (4.8-10.8)
[2021-11-20 04:37] LABS: Anion Gap 13 mmol/L (10-20); BUN (Urea Nitrogen) 12 mg/dL (9.8-20.1); Calc. Creatinine Clearance 193 mL/min (70-130); Calcium 7.9 mg/dL (7.8-10.44); Carbon Dioxide 24 mmol/L (22-29); Chloride 106 mmol/L (98-107); Cholesterol 251 mg/dl (< 200 Desired); Glucose 114 mg/dL (70-105); HDL Cholesterol 83 mg/dL (>60 Neg Risk); LDL Cholesterol, Calculated 150 mg/dL; Potassium 4.4 mmol/L (3.5-5.1); Sodium 139 mmol/L (136-145); Triglycerides 90 mg/dL (Less than 150)
[2021-11-20 04:42] LABS: Troponin I Less than 0.010 ng/mL (< 0.028)
[2021-11-20] MEDS ORDERED: Aspirin Chewable 81 MG TAB PO SCH (09:00)
[2021-11-20] MEDS ORDERED: Clopidogrel Bisulfate 75 MG TAB PO SCH (09:00)
[2021-11-20] MEDS ORDERED: Enoxaparin Sodium 40 MG/0.4 ML SYRINGE SC SCH (09:00)
[2021-11-20 15:24] VITALS: BP 133/84; TEMP 98.2
[2021-11-20 16:11] LABS: SARS-CoV-2 PCR by NAA Not Detected (NotDetected)
[2021-11-20] MEDS ORDERED: valACYclovir 500 MG TAB PO SCH (21:00)
== END 2021-11-20 17:48 | disposition home or self-care (01) ==
LOC: ERS 20:21 → ERHOLD 21:56 → NEURO 11-20 13:11
PROVIDERS: ADMIT Internal Medicine; ATTEND Internal Medicine
DX: R53.1 Weakness (principal); R07.89 Other chest pain; I11.0 Hypertensive heart disease with heart failure; I50.32 Chronic diastolic (congestive) heart failure; D84.822 Immunodeficiency due to external causes; C90.00 Multiple myeloma not having achieved remission; D63.0 Anemia in neoplastic disease; M79.18 Myalgia, other site; F17.210 Nicotine dependence, cigarettes, uncomplicated; E87.6 Hypokalemia; E87.1 Hypo-osmolality and hyponatremia; E78.2 Mixed hyperlipidemia; G89.29 Other chronic pain; M54.9 Dorsalgia, unspecified; J44.9 Chronic obstructive pulmonary disease, unspecified; I37.1 Nonrheumatic pulmonary valve insufficiency; Z86.73 Personal history of transient ischemic attack (TIA), and cerebral infarction without residual deficits; Z79.02 Long term (current) use of antithrombotics/antiplatelets; Z79.899 Other long term (current) drug therapy; Z88.8 Allergy status to other drugs, medicaments and biological substances; Z94.84 Stem cells transplant status; Z98.1 Arthrodesis status; Z20.822 Contact with and (suspected) exposure to COVID-19
CPT/HCPCS: 36415; 70450; 70496; 70498; 70551; 71045; 78452; 80048; 80053; 80061; 83735; 84484; 85025; 85610; 85730; 93005; 93017; 93306; 96372; 96374; A9500; G0378; J1650; J2405; Q9967; U0003; U0005

== ENCOUNTER 2022-08-25 12:42 | Outpatient (CLI) | payer BC | END 2022-08-25 12:43 | disposition home or self-care (01) | LOC: BICMAMMO 12:42 | PROVIDERS: ATTEND Obstetrics & Gynecology | DX: Z12.31 Encounter for screening mammogram for malignant neoplasm of breast (principal); Z85.89 Personal history of malignant neoplasm of other organs and systems; Z80.3 Family history of malignant neoplasm of breast | CPT/HCPCS: 77063; 77067 ==

== ENCOUNTER 2022-10-02 18:32 | Emergency (ER) | payer BC ==
[2022-10-02 19:12] LABS: #Basophils 0.1 thou/uL (0.0-0.2); #Eosinphils 0.1 thou/uL (0.0-0.7); #Lymphocytes 1.5 thou/uL (1.20-3.40); #Monocytes 0.8 thou/uL (0.11-0.59); %Eosinophils 1.2 % (0.0-10.0); %Lymphocytes 23.7 % (21.0-51.0); %Monocytes 12.2 % (0.0-10.0); %Neutrophils 61.8 % (42.0-75.0); Hemoglobin 13.9 g/dL (12.0-16.0); Mean Corpuscular HGB CONC 34.3 g/dL (32.0-36.0); Mean Corpuscular Hemoglobin 33.2 pg (27.0-31.0); Mean Corpuscular Volume 96.9 fl (78.0-98.0); Mean Platelet Volume 7.3 fL (7.4-10.4); Platelet Count 294 10x3/uL (130-400); RBC Distribution Width 12.3 % (11.5-14.5); White Blood Cell (WBC) Count 6.4 10x3/uL (4.8-10.8)
[2022-10-02 19:41] LABS: ALT (SGPT) 11 U/L (8-55); AST (SGOT) 19 U/L (5-34); Albumin 4.4 g/dL (3.5-5.0); Alkaline Phosphatase 101 U/L (40-110); Anion Gap 16 mmol/L (10-20); BUN (Urea Nitrogen) 13 mg/dL (9.8-20.1); Bilirubin, Total 0.3 mg/dL (0.2-1.2); Calc. Creatinine Clearance 0 mL/min (70-130); Calcium 9.9 mg/dL (7.8-10.44); Carbon Dioxide 28 mmol/L (22-29); Chloride 99 mmol/L (98-107); Estimated GFR 84; Globulin 2.6 g/dL (2.4-3.5); Glucose 101 mg/dL (70-105); Lipase 31 U/L (8-78); Potassium 3.5 mmol/L (3.5-5.1); Sodium 139 mmol/L (136-145)
[2022-10-02] MEDS ORDERED: Ondansetron PF 4 MG/2 ML Vial ONE (20:08)
[2022-10-02 20:30] LABS: Bilirubin Negative (Negative); Blood, Urine Negative (Negative); Clarity Clear (Clear); Glucose, Urine (Dipstick) Normal (Negative); Ketone, Urine Negative (Negative); Leukocyte Negative Leu/uL (Negative); Nitrite Negative (Negative); Protein, Urine (Dipstick) Negative (Neg-Trace); Specific Gravity, Urine 1.007 (1.002-1.036); Urobilinogen Normal mg/dL (Less than 2); pH, Urine 7.5 (5.0-9.0)
== END 2022-10-02 21:54 | disposition home or self-care (01) ==
LOC: ERS 18:32
DX: R00.2 Palpitations (principal); I10 Essential (primary) hypertension; Z79.01 Long term (current) use of anticoagulants; Z79.82 Long term (current) use of aspirin
CPT/HCPCS: 36415; 71045; 71275; 80053; 81003; 83605; 83690; 84484; 85025; 93005; 96374; J2405

== ENCOUNTER 2024-04-29 07:53 | Outpatient (CLI) | payer BC ==
[2024-04-29] MEDS ORDERED: Iopamidol 370 76% 100 ML VIAL ONE (09:30)
== END 2024-04-29 07:54 | disposition home or self-care (01) ==
LOC: CT 07:53
PROVIDERS: ATTEND Internal Medicine Hematology & Oncology
DX: C90.00 Multiple myeloma not having achieved remission (principal); R10.9 Unspecified abdominal pain; R94.5 Abnormal results of liver function studies; C90.20 Extramedullary plasmacytoma not having achieved remission; D47.2 Monoclonal gammopathy; C79.51 Secondary malignant neoplasm of bone; T82.898A Other specified complication of vascular prosthetic devices, implants and grafts, initial encounter
CPT/HCPCS: 72193; 74170; Q9967

== ENCOUNTER 2024-07-06 10:07 | Emergency (ER) | payer BC ==
[2024-07-06 10:47] LABS: #Basophils 0.11 10x3/uL (0.0-0.2); %Basophils 1.9 % (0.0-1.0); %Eosinophils 5.4 % (0.0-10.0); %Lymphocytes 30.2 % (21.0-51.0); %Monocytes 11.4 % (0.0-10.0); %Neutrophils 50.9 % (42.0-75.0); Hematocrit 43.3 % (36.0-47.0); Hemoglobin 14.6 g/dL (12.0-16.0); Mean Corpuscular HGB CONC 33.7 g/dL (32.0-36.0); Mean Corpuscular Hemoglobin 30.3 pg (27.0-31.0); Mean Corpuscular Volume 89.8 fL (78.0-98.0); Mean Platelet Volume 8.6 fL (7.4-10.4); Platelet Count 411 10x3/uL (130-400); RBC Distribution Width 14.3 % (11.5-14.5); Red Blood Cell (RBC) Count 4.82 mill/uL (4.20-5.40)
[2024-07-06 11:03] LABS: ALT (SGPT) 43 U/L (8-55); AST (SGOT) 50 U/L (5-34); Albumin 4.5 g/dL (3.5-5.0); Alkaline Phosphatase 113 U/L (40-110); Anion Gap 18 mmol/L (10-20); BUN (Urea Nitrogen) 11 mg/dL (9.8-20.1); Bilirubin, Total 0.4 mg/dL (0.2-1.2); Calc. Creatinine Clearance 0 mL/min (70-130); Calcium 10.1 mg/dL (7.8-10.44); Carbon Dioxide 26 mmol/L (22-29); Chloride 99 mmol/L (98-107); Estimated GFR 70; Globulin 3.5 g/dL (2.4-3.5); Glucose 88 mg/dL (70-105); Iron 138 ug/dL (50-170); Potassium 3.4 mmol/L (3.5-5.1); Sodium 140 mmol/L (136-145)
[2024-07-06 11:43] LABS: PTT 33.2 sec (22.9-36.1); Prothrombin Time 13.6 sec (12.0-14.7)
[2024-07-06 12:05] LABS: Troponin I Less than 0.010 ng/mL (< 0.028)
[2024-07-06] MEDS ORDERED: Potassium Chloride 20 MEQ (100 mL) BAG ONE (12:14)
== END 2024-07-06 13:35 | disposition home or self-care (01) ==
LOC: ERS 10:07
DX: E87.6 Hypokalemia (principal); E86.0 Dehydration; R53.1 Weakness; I10 Essential (primary) hypertension; Z86.73 Personal history of transient ischemic attack (TIA), and cerebral infarction without residual deficits; Z55.6 Problems related to health literacy; Z75.3 Unavailability and inaccessibility of health-care facilities; Z79.01 Long term (current) use of anticoagulants; Z79.82 Long term (current) use of aspirin; Z79.899 Other long term (current) drug therapy
CPT/HCPCS: 71045; 80053; 83540; 83605; 83690; 83880; 84145; 84443; 84484; 85025; 85610; 85730; 86850; 86870; 86900; 86901; 93005; 96361; 96374; J3480

== ENCOUNTER 2024-07-31 08:18 | Outpatient (CLI) | payer BC | END 2024-07-31 08:19 | disposition home or self-care (01) | LOC: BICMAMMO 08:18 | PROVIDERS: ATTEND Obstetrics & Gynecology | DX: C90.00 Multiple myeloma not having achieved remission (principal); Z78.0 Asymptomatic menopausal state; M85.89 Other specified disorders of bone density and structure, multiple sites | CPT/HCPCS: 77080 ==

== ENCOUNTER 2024-08-19 23:44 | Observation (INO) | payer BC ==
[2024-08-20] MEDS ORDERED: Ondansetron PF 4 MG/2 ML Vial IVP PRN (02:49)
[2024-08-20 02:57] VITALS: BMI 28.4
[2024-08-20 03:00] VITALS: TEMP 97.7
[2024-08-20] MEDS: Lactated Ringer's 1,000 ML IV SCH (04:01)
[2024-08-20] MEDS: Acetaminophen 325 MG TAB PO PRN (04:01)
[2024-08-20 05:03] LABS: #Basophils Less than 0.03 10x3/uL (0.0-0.2); #Eosinophils Less than 0.03 10x3/uL (0.0-0.7); %Lymphocytes 13.2 % (21.0-51.0); %Monocytes 2.1 % (0.0-10.0); %Neutrophils 84.5 % (42.0-75.0); Hematocrit 34.7 % (36.0-47.0); Hemoglobin 11.6 g/dL (12.0-16.0); Mean Corpuscular HGB CONC 33.4 g/dL (32.0-36.0); Mean Corpuscular Hemoglobin 31.4 pg (27.0-31.0); Mean Platelet Volume 8.7 fL (7.4-10.4); Platelet Count 253 10x3/uL (130-400); RBC Distribution Width 14.9 % (11.5-14.5); Red Blood Cell (RBC) Count 3.69 mill/uL (4.20-5.40)
[2024-08-20 05:13] LABS: Lactic Acid 1.92 mmol/L (0.5-2.2)
[2024-08-20 05:19] LABS: Anion Gap 15 mmol/L (10-20); BUN (Urea Nitrogen) 7 mg/dL (9.8-20.1); Calc. Creatinine Clearance 107 mL/min (70-130); Calcium 8.4 mg/dL (7.8-10.44); Carbon Dioxide 20 mmol/L (22-29); Chloride 107 mmol/L (98-107); Estimated GFR 102; Glucose 139 mg/dL (70-105); Magnesium 2.1 mg/dL (1.6-2.6); Sodium 138 mmol/L (136-145)
[2024-08-20] MEDS: Benzonatate 100 MG CAP PO PRN (05:58)
[2024-08-20] MEDS ORDERED: Benzonatate 100 MG CAP PO PRN (06:03)
[2024-08-20 06:21] LABS: Actual Bicarbonate (HCO3v) 25.5 mEq/L (22-28); Base Excess 1.1 mEq/L (-2.0 to +3.0); Calcium, Ionized (venous) 1.05 mmol/L (1.16-1.32); Chloride (VBG) 103 mmol/L (98-106); Hematocrit-VBG 37 % (36.0-47.0); Hemoglobin (Hb) 12.5 g/dL (11.7-16.0); Potassium (VBG) 3.96 mmol/L (3.70-5.30); Sodium 138 mmol/L (133-146); pH (venous) 7.425 (7.32-7.43)
[2024-08-20] MEDS: Ipratropium/Albuterol 3 ML NEB EZPAP SCH (07:33)
[2024-08-20] MEDS: Venlafaxine HCl XR 150 MG CAP PO SCH (08:32)
[2024-08-20] MEDS: Pantoprazole DR 40 MG TAB PO SCH (08:32)
[2024-08-20] MEDS: Aspirin 81 mg Enteric Coated Tablet PO SCH (08:32)
[2024-08-20] MEDS: valACYclovir 500 MG TAB PO SCH (08:32)
[2024-08-20] MEDS: Potassium Chloride 10 MEQ TAB PO SCH (08:32)
[2024-08-20] MEDS: Loratadine 10 MG TAB PO SCH (08:32)
[2024-08-20] MEDS: Apixaban 5 MG TAB PO SCH (08:32)
[2024-08-20] MEDS: guaiFENesin/Codeine 200 mg/20 mg 10 ml Cup PO PRN (08:33)
[2024-08-20] MEDS: Amlodipine 5 MG TAB PO SCH (08:44)
[2024-08-20] MEDS ORDERED: guaiFENesin/DM ER PO SCH (09:00)
[2024-08-20] MEDS ORDERED: Enoxaparin 40 MG (0.4 mL) SYRINGE SC SCH (09:00)
[2024-08-20] MEDS: dilTIAZem CD 120 MG CAP PO SCH (11:28)
[2024-08-20] MEDS: Doxycycline 100 MG CAP PO SCH (11:28)
[2024-08-20 11:29] VITALS: BP 110/74
[2024-08-20] MEDS: methylPREDNISolone 4 mg Tablet PO SCH (11:29)
[2024-08-20] MEDS: Benzonatate 100 MG CAP PO SCH (11:29)
== END 2024-08-20 12:24 | disposition home or self-care (01) ==
LOC: PCU 08-20 02:23
PROVIDERS: ADMIT Internal Medicine; ATTEND Family Medicine
DX: R53.1 Weakness (principal); R51.9 Headache, unspecified; R65.10 Systemic inflammatory response syndrome (SIRS) of non-infectious origin without acute organ dysfunction; J06.9 Acute upper respiratory infection, unspecified; E87.6 Hypokalemia; C90.00 Multiple myeloma not having achieved remission; R91.1 Solitary pulmonary nodule; I10 Essential (primary) hypertension; E78.5 Hyperlipidemia, unspecified; Z86.73 Personal history of transient ischemic attack (TIA), and cerebral infarction without residual deficits; Z79.01 Long term (current) use of anticoagulants; Z90.49 Acquired absence of other specified parts of digestive tract; Z98.1 Arthrodesis status; Z90.710 Acquired absence of both cervix and uterus; F17.210 Nicotine dependence, cigarettes, uncomplicated
CPT/HCPCS: 36415; 80048; 82805; 83605; 83735; 85025; 87633; 94640; G0378; J7509; J7620